=== PATIENT | male | born 1980 | race Caucasian/White ===

== ENCOUNTER 2020-01-18 14:16 | Inpatient (IN) ==
[2020-01-18] MEDS ORDERED: VECURONIUM BROMIDE 10 MG VIAL IV ONE (14:17)
[2020-01-18] MEDS ORDERED: MIDAZOLAM HCL 5 MG/ML VIAL IV ONE (14:17)
[2020-01-18] MEDS ORDERED: SODIUM CHLORIDE 0.9% 10ML FLUSH IV ONE (14:17)
[2020-01-18] MEDS ORDERED: SODIUM CHLORIDE 0.9% INJ 10 ML VIAL IV ONE (14:17)
[2020-01-18] MEDS ORDERED: KETAMINE HCL INJ 50 MG/ML 10 ML VIAL IV ONE (14:17)
[2020-01-18] MEDS ORDERED: SUCCINYLCHOLINE CHLORIDE 20 MG/ML 10 ML VIAL IV ONE (14:17)
[2020-01-18] MEDS ORDERED: HALOPERIDOL LACTATE 5 MG/ML 1 ML VIAL ONE (14:21)
[2020-01-18] MEDS ORDERED: RAPID SEQUENCE INDUCTION BAG ONE (14:27)
--- NOTE | 2020-01-18 14:50 | Emergency Department Note ---
ED Provider Note NAME: PATRIC [id number] VRECSICS AGE: 39 SEX: M : 1980 ARRIVES VIA: Ambulance INFORMANT: [security, nurses, guards] ED PROVIDER(S): [Alexsander Gordon MD] CHIEF COMPLAINT: Altered mental status HISTORY OF PRESENT ILLNESS: The patient is a 39-year-old male who presents from [facility]. The patient was found just prior to arrival by his cellmate unresponsive and confused and combative. The patient was taken to the [facility] and then sent by ambulance to our hospital. In route, the patient was given a total of 4 mg of IV Ativan, 2 mg of IV Versed. The patient arrives combative and [id number]. He is in shackles. BSG was 155 as per the EMS team. No further history is really obtainable. The patient is not able to give any history, the guards and nurses cannot add any further history. History limited given the mental state. REVIEW OF SYSTEMS: Unobtainable/limited given the mental state. PMHx/PSHx: See Below SOCIAL HISTORY: See Below. PHYSICAL EXAM: GENERAL: Patient is significant distress, agitated, combative. HEENT: Patient's pupils are quite large but equal. There are some scratches across the face around the mouth. He has an abrasion to the inner mid to left lower lip, no laceration requiring repair, no dental trauma appreciated. No other facial bony step-off seen, no scalp hematomas. NECK: No stridor, no adenopathy, trachea is midline. LUNGS: Clear to auscultation bilaterally, no wheeze, no rhonchi, breath sounds equal. HEART: Mildly tachycardic, regular rhythm, no murmurs. ABDOMEN: Soft, nontender, bowel sounds positive, no hernias, no peritonitis. EXTREMITIES: No cyanosis or edema, full range of motion of all the joints. The patient is in hand and leg cuffs. There are some abrasions along the skin where the metal cuffs are located. No gross deformity to any extremity. NEUROLOGIC: Combative, moving all extremities, agitated, nonverbal. SKIN: No rash, no jaundice, no diaphoresis. DIFFERENTIAL DIAGNOSIS: Overdose, toxicologic, infection, hypoglycemia, electrolyte abnormalities, cardiac sources, intracerebral event, neurologic, trauma, as well as other pathologies. EMERGENCY DEPARTMENT COURSE/PROCEDURES: ECG: There is a normal sinus rhythm with a rate of 75, artifact is present. QTC is 431, no PVCs, no ST elevation or depression. Continuous Cardiac Monitoring: An order was placed for continuous cardiac monitoring. The monitor shows a rate of 98 with normal sinus rhythm. Intubation performed by me: Patient received 120 mg of succinylcholine IV. The patient was hyper oxygenated. Using rapid technique, the patient was intubated with a [place] two blade. Some suction was required. No complication. The endotracheal tube was placed at 22 centimeters at the the lips. Good O2 saturation noted afterwards. Good CO2 color change. The patient had decreased breath sounds on the left when I performed auscultation. The tube was pulled back slightly. A chest film showed the tube to be slightly deep so it was pulled back 1 cm, a repeat film showed the endotracheal tube to be in good position. IV vecuronium was given to help maintain paralysis. A propofol drip was initiated. No complication with the intubation. Critical Care Note: I have personally spent greater than 65 minutes of critical care time in the direct management of this patient. This includes bedside care, interpretation of diagnostic studies and testing, discussion with consultants, the patient, and family members, and other required patient management activities. This 65 minutes is in excess of all separately billable procedures. MEDICAL DECISION MAKING: The patient presented combative and was in need of chemical and physical restraint. He was aggressively managed. He was initially given IV Versed, IV Haldol, then IV ketamine, he received a second dose of IV ketamine. Ketamine did seem to provide adequate sedation. The patient did have a left-sided nasal airway placed to help with oxygenation. It was not too long after the second dose of IV ketamine that there was some vomiting. He was aggressively suctioned and then intubated, please see above notes. There was no difficulty with the intubation. There is a moderate leukocytosis at 17,000, this could be consistent with infection or just the stress of his presentation. There is no anemia. Platelet count somewhat low at 122. Sodium was quite low at 117, chloride also low. No kidney failure. Serum osmolality was also low at 253. No liver enzyme elevation. The patient appeared to be in a euthyroid state. EKG showed a sinus rhythm, no acute ischemia. Cardiac enzyme testing x1 is not consistent with acute cardiac injury. Urine tox was negative. Alcohol level was undetectable. Gastroccult was negative. Chest film did not show pneumonia or CHF. Brain CT showed no acute bleed or mass-effect. Facial CT showed no acute fracture. Once the patient was intubated, a repeat chest film showed the tube to be in proper position, the lungs were clear. Patient was given 2 L of IV saline during his ED stay. He also was eventually placed on a propofol drip. He received a dose of IV vecuronium to maintain paralysis. A repeat serum sodium showed a value of 119, slight improvement. The patient did have an NG tube placed and Davis placed. The NG tube had significant dark liquid output. The patient had significant dilute urine output. I spoke to the bit gatherer semi conductor assembler, I spoke to the on-call hospitalist. I did speak to case management. Patient is in need of a hospital stay, the cause for this entire presentation is unclear however, overdose or even psychogenic polydipsia are considerations. Of note, there was no [facility], by the EMS crew or noted by the nursing staff here. His combative behavior was noted but there was no true seizure-like event documented. Impression & Plan Respiratory failure, Altered mental status, Combative behavior, Acute hyponatremia, Vomiting Past Med/Surg History Medical History BPH (benign prostatic hyperplasia) Dyslipidemia HTN (hypertension) Family History Other Family history unobtainable Social History Communication Ability: Unable Communication Ability Comment: pt intubated Current Living Situation: Other Current Living Situation Comment: [facility] Smoking Status: Unknown if ever smoked Hx Alcohol Use: No Results & Data Vital Signs Vital Signs - 24 hr 01/18/20 14:30 01/18/20 14:35 01/18/20 14:47 Pulse Rate 71 74 72 Pulse Rate from SpO2 Sensor 77 71 Respiratory Rate 19 16 21 Blood Pressure 115/93 119/68 Blood Pressure Mean 111 93 Pulse Oximetry 95 96 95 Oxygen Delivery Method Room Air Oxymask Oxygen Flow Rate 6 Fraction of Inspired Oxygen Sepsis Recent Fever Within 48 Hours No Sepsis New/Unexplained Change in Mental Status Yes Sepsis Action Taken by Nursing No Action Required End-Tidal CO2 Fraction of Inspired Oxygen - Titration Pulse Oximetry Post Tiitration 01/18/20 14:51 01/18/20 15:01 01/18/20 15:15 Pulse Rate 79 62 Pulse Rate from SpO2 Sensor 81 61 Respiratory Rate 18 11 L Blood Pressure 110/59 L 115/74 Blood Pressure Mean 82 88 Pulse Oximetry 97 97 100 Oxygen Delivery Method Oxymask Mechanical Vent Oxygen Flow Rate Fraction of Inspired Oxygen Sepsis Recent Fever Within 48 Hours Sepsis New/Unexplained Change in Mental Status Sepsis Action Taken by Nursing End-Tidal CO2 Fraction of Inspired Oxygen - Titration Pulse Oximetry Post Tiitration 01/18/20 15:37 01/18/20 15:42 01/18/20 15:44 Pulse Rate 59 L 71 Pulse Rate from SpO2 Sensor 61 73 Respiratory Rate 14 Blood Pressure 181/111 H 182/120 H Blood Pressure Mean 126 130 Pulse Oximetry 100 100 87 L Oxygen Delivery Method Oxygen Flow Rate Fraction of Inspired Oxygen 50 Sepsis Recent Fever Within 48 Hours Sepsis New/Unexplained Change in Mental Status Sepsis Action Taken by Nursing End-Tidal CO2 37 39 Fraction of Inspired Oxygen - Titration 50 Pulse Oximetry Post Tiitration 100 01/18/20 15:45 Pulse Rate 74 Pulse Rate from SpO2 Sensor 82 Respiratory Rate Blood Pressure 180/120 H Blood Pressure Mean 140 Pulse Oximetry 96 Oxygen Delivery Method Oxygen Flow Rate Fraction of Inspired Oxygen Sepsis Recent Fever Within 48 Hours Sepsis New/Unexplained Change in Mental Status Sepsis Action Taken by Nursing End-Tidal CO2 39 Fraction of Inspired Oxygen - Titration Pulse Oximetry Post Tiitration Home Medications Current Medication List: was personally reviewed by me Laboratory Data Attestation: I reviewed the patient's lab results. Result diagrams: 01/18/20 15:49 01/18/20 15:49 Lab Results 01/18/20 01/18/20 01/18/20 Range/Units 14:41 14:41 14:41 WBC Cancelled RBC Cancelled Hgb Cancelled Hct Cancelled MCV Cancelled MCH Cancelled MCHC Cancelled RDW Std Deviation Cancelled RDW Coeff of Jovanni Cancelled Plt Count Cancelled MPV Cancelled Immature Gran % (Auto) Cancelled Neut % (Auto) Cancelled Lymph % (Auto) Cancelled Brantley % (Auto) Cancelled Eos % (Auto) Cancelled Baso % (Auto) Cancelled Immature Gran # (Auto) Cancelled Neut # (Auto) Cancelled Lymph # (Auto) Cancelled Brantley # (Auto) Cancelled Eos # (Auto) Cancelled Baso # (Auto) Cancelled Absolute Nucleated RBC Cancelled Nucleated RBC % (auto) Cancelled Neutrophils % (Manual) Cancelled Band Neutrophils % Cancelled Lymphocytes % (Manual) Cancelled Prolymphocyte % Cancelled Reactive Lymphs % (Man) Cancelled Monocytes % (Manual) Cancelled Eosinophils % (Manual) Cancelled Basophils % (Manual) Cancelled Metamyelocytes % (Man) Cancelled Myelocytes % (Man) Cancelled Promyelocytes % (Man) Cancelled Blast Cells % (Manual) Cancelled Plasma Cell % (Manual) Cancelled Other Cells % Cancelled Nucleated RBC % Cancelled Neutrophils # (Manual) Cancelled Band Neutrophils # Cancelled Total Absolute Neuts Cancelled Lymphocytes # (Manual) Cancelled Prolymphocyte # Cancelled Reactive Lymphs # Cancelled Total Abs Lymphocytes Cancelled Monocytes # (Manual) Cancelled Eosinophils # (Manual) Cancelled Basophils # (Manual) Cancelled Metamyelocytes # (Man) Cancelled Myelocytes # (Manual) Cancelled Promyelocytes # (Man) Cancelled Blast Cells # (Man) Cancelled Plasma Cell # (Manual) Cancelled Other Cells # Cancelled Nucleated RBCs # (Man) Cancelled Hypersegmented Neuts Cancelled Hyposegmented Neuts Cancelled Hypogranular Neuts Cancelled Large Granular Lymphs Cancelled # Lrg Granular Lymphs Cancelled Hairy Cells Cancelled Smudge Cells Cancelled Toxic Granulation Cancelled Toxic Vacuolation Cancelled Dohle Bodies Cancelled Kody Rods Cancelled Platelet Estimate Cancelled Hypogranular Platelets Cancelled Clumped Platelets Cancelled Giant Platelets Cancelled Platelet Satelliting Cancelled RBC Morphology Cancelled Polychromasia Cancelled Hypochromasia Cancelled Poikilocytosis Cancelled Basophilic Stippling Cancelled Anisocytosis Cancelled Microcytosis Cancelled Macrocytosis Cancelled Spherocytes Cancelled Pappenheimer Bodies Cancelled Sickle Cells Cancelled Target Cells Cancelled Tear Drop Cells Cancelled Ovalocytes Cancelled Stomatocytes Cancelled [place] Bodies Cancelled Echinocytes Cancelled Acanthocytes (Spur) Cancelled Rouleaux Cancelled RBC Agglutinates Cancelled Schistocytes Cancelled RBC Morph Comment Cancelled Sezary Cell Cancelled Sodium 117 L* (136-145) mmol/L Potassium (3.5-5.1) mmol/L Chloride 80 L (98-107) mmol/L Carbon Dioxide 22 (21-32) mmol/L Anion Gap 15.0 H (3-11) BUN 10 (7-18) mg/dl Creatinine 1.01 (0.6-1.4) mg/dl Est Cr Clr Drug Dosing Not Reportable Est GFR ( Amer) 109.6 Est GFR (Non-Af Amer) 94.6 BUN/Creatinine Ratio 9.4 L (10-20) Glucose 117 H (70-99) mg/dl POC Glucose (70-99) mg/dl Calcium 8.1 L (8.5-10.1) mg/dl Magnesium TNP Total Bilirubin 0.9 (0.2-1) mg/dl AST (15-37) U/L ALT 32 (12-78) U/L Alkaline Phosphatase 57 (45-117) U/L Total Creatine Kinase TNP Troponin I < 0.015 (0-0.045) ng/ml Total Protein 7.7 (6.4-8.2) gm/dl Albumin 3.9 (3.4-5.0) gm/dl Globulin 3.8 (2.5-4.0) gm/dl Albumin/Globulin Ratio 1.0 (0.9-2) TSH 3.350 (0.300-4.500) uIu/ml Gastric Fluid pH Gastric Occult Blood (Negative) Urine Opiates Screen (Neg) Ur Methadone, Qual (Neg) Urine Barbiturates (Neg) Ur Phencyclidine (PCP) (Neg) U Amphetamin/Meth Scrn (Neg) MDMA (Ecstasy) Screen (Neg) U Benzodiazepines Scrn (Neg) Ur Cocaine Metabolite (Neg) U Marijuana (THC) Screen (Neg) Ethyl Alcohol mg/dL < 3.0 (0-3) mg/dl 01/18/20 01/18/20 01/18/20 Range/Units 14:41 14:45 14:45 WBC RBC Hgb Hct MCV MCH MCHC RDW Std Deviation RDW Coeff of Jovanni Plt Count MPV Immature Gran % (Auto) Neut % (Auto) Lymph % (Auto) Brantley % (Auto) Eos % (Auto) Baso % (Auto) Immature Gran # (Auto) Neut # (Auto) Lymph # (Auto) Brantley # (Auto) Eos # (Auto) Baso # (Auto) Absolute Nucleated RBC Nucleated RBC % (auto) Neutrophils % (Manual) Band Neutrophils % Lymphocytes % (Manual) Prolymphocyte % Reactive Lymphs % (Man) Monocytes % (Manual) Eosinophils % (Manual) Basophils % (Manual) Metamyelocytes % (Man) Myelocytes % (Man) Promyelocytes % (Man) Blast Cells % (Manual) Plasma Cell % (Manual) Other Cells % Nucleated RBC % Neutrophils # (Manual) Band Neutrophils # Total Absolute Neuts Lymphocytes # (Manual) Prolymphocyte # Reactive Lymphs # Total Abs Lymphocytes Monocytes # (Manual) Eosinophils # (Manual) Basophils # (Manual) Metamyelocytes # (Man) Myelocytes # (Manual) Promyelocytes # (Man) Blast Cells # (Man) Plasma Cell # (Manual) Other Cells # Nucleated RBCs # (Man) Hypersegmented Neuts Hyposegmented Neuts Hypogranular Neuts Large Granular Lymphs # Lrg Granular Lymphs Hairy Cells Smudge Cells Toxic Granulation Toxic Vacuolation Dohle Bodies Kody Rods Platelet Estimate Hypogranular Platelets Clumped Platelets Giant Platelets Platelet Satelliting RBC Morphology Polychromasia Hypochromasia Poikilocytosis Basophilic Stippling Anisocytosis Microcytosis Macrocytosis Spherocytes Pappenheimer Bodies Sickle Cells Target Cells Tear Drop Cells Ovalocytes Stomatocytes [place] Bodies Echinocytes Acanthocytes (Spur) Rouleaux RBC Agglutinates Schistocytes RBC Morph Comment Sezary Cell Sodium (136-145) mmol/L Potassium (3.5-5.1) mmol/L Chloride (98-107) mmol/L Carbon Dioxide (21-32) mmol/L Anion Gap (3-11) BUN (7-18) mg/dl Creatinine (0.6-1.4) mg/dl Est Cr Clr Drug Dosing Est GFR ( Amer) Est GFR (Non-Af Amer) BUN/Creatinine Ratio (10-20) Glucose (70-99) mg/dl POC Glucose 127 H (70-99) mg/dl Calcium (8.5-10.1) mg/dl Magnesium Total Bilirubin (0.2-1) mg/dl AST (15-37) U/L ALT (12-78) U/L Alkaline Phosphatase (45-117) U/L Total Creatine Kinase Troponin I (0-0.045) ng/ml Total Protein (6.4-8.2) gm/dl Albumin (3.4-5.0) gm/dl Globulin (2.5-4.0) gm/dl Albumin/Globulin Ratio (0.9-2) TSH (0.300-4.500) uIu/ml Gastric Fluid pH 5-7 Gastric Occult Blood Negative (Negative) Urine Opiates Screen Neg (Neg) Ur Methadone, Qual Neg (Neg) Urine Barbiturates Neg (Neg) Ur Phencyclidine (PCP) Neg (Neg) U Amphetamin/Meth Scrn Neg (Neg) MDMA (Ecstasy) Screen Neg (Neg) U Benzodiazepines Scrn Neg (Neg) Ur Cocaine Metabolite Neg (Neg) U Marijuana (THC) Screen Neg (Neg) Ethyl Alcohol mg/dL (0-3) mg/dl Administered Medications Propofol (Diprivan) 1,000 mg in 100 mls @ 9.324 mls/hr IV .[id number] [facility]; Protocol Stop: 01/21/20 15:14 Last Titration: 01/18/20 16:35 Dose: 25 mcg/kg/min, 11.7 mls/hr Documented by: [id number] Titration: 01/18/20 16:19 Dose: 20 mcg/kg/min, 9.3 mls/hr Documented by: [id number] Titration: 01/18/20 16:15 Dose: 15 mcg/kg/min, 7 mls/hr Documented by: [id number] Titration: 01/18/20 15:48 Dose: 10 mcg/kg/min, 4.7 mls/hr Documented by: [id number] Admin: 01/18/20 15:20 Dose: 5 mcg/kg/min, 2.3 mls/hr Documented by: [id number] Cosigned by: [id number] Discontinued Medications Vecuronium Eugene 10 mg/ (Syringe) 10 mls @ 0 mls/min IV NOW STA Stop: 01/18/20 15:24 Last Admin: 01/18/20 15:16 Dose: 10 mls/min Documented by: [id number] Sodium Chloride (Nss 1000ml) 1,000 mls @ 999 mls/hr IV .[id number] ONE Stop: 01/18/20 16:35 Last Admin: 01/18/20 15:51 Dose: 999 mls/hr Documented by: [id number] Propofol (Diprivan) Confirm Administered Dose 1,000 mg IV .CardMunch ONE Stop: 01/18/20 15:11 Last Admin: 01/18/20 15:56 Dose: Not Given Documented by: [id number] Imaging Data Radiologist's Impression: HEAD CT NONCONTRAST CT DOSE: HISTORY: Trauma. confusion TECHNIQUE: Multiaxial CT images of the head were performed without the use of intravenous contrast. Automated exposure control was utilized for this study. A dose lowering technique was utilized adhering to the principles of ALARA. Comparison: None. Findings: Bubbly secretions seen within the posterior nasal cavity. This is only partially visualized on this study. The mastoid air cells are clear. The calvarium and skull base are intact. The ventricles and sulci are within normal limits. There is no mass, hematoma, midline shift, or acute infarct. Impression: No acute intracranial abnormality. Bubbly secretions within the posterior nasal cavity. CT facial bones wo con CT DOSE: 768.66 mGy.cm CLINICAL HISTORY: Facial pain status post trauma COMPARISON STUDY: No previous studies for comparison. TECHNIQUE: Helical images were acquired in the transverse plane. The study was reviewed and analyzed on the independent 3-D workstation. A dose lowering technique was utilized adhering to the principles of ALARA. A nasogastric tube and endotracheal tube are visualized. The pterygoid plates appear intact. The zygomatic arches appear intact. The globes appear intact. There is no evidence of orbital emphysema. The orbital sands and floor appear intact. There is pansinus mucosal thickening. The mandibular condyles appear intact. The right mandibular condyle is in the open position, and the left mandibular condyle is in the closed position. This may be secondary to mandibular orientation. This will need to be correlated clinically. IMPRESSION: No facial fractures identified. XR chest 1V portable CLINICAL HISTORY: confusion mental status change COMPARISON STUDY: No previous studies for comparison. FINDINGS: The bones soft tissues and hemidiaphragms are normal. The cardiomediastinal silhouette is normal. The lungs are clear. The pulmonary va sculature is normal. IMPRESSION: Negative chest. XR chest 1V portable CLINICAL HISTORY: Tube placement. COMPARISON STUDY: 01/18/2020 FINDINGS: There is a nasogastric tube which passes into the stomach. There is an endotracheal tube positioned 19 mm above the manish. The lungs are clear. There are no pleural effusions.[ IMPRESSION: 1. Endotracheal tube 19 mm above the manish 2. Nasogastric tube within the stomach Blood Pressure Blood Pressure Findings: Elevated blood pressure Blood Pressure Disposition: further management by hospitalist Discharge Plan Visit Data Chief Complaint: Overdose (Intentional) ED Provider: Alexsander Gordon Discharge Problem: Respiratory failure, Altered mental status, Combative behavior, Acute hyponatremia, Vomiting Patient Disposition: Being Evaluated by Hospitalist Condition: Serious Discharge Instructions Interventions: ED Discharge Assessment Last Done: 01/18/20 16:35 Discharge Problem: Respiratory failure Qualifiers: Chronicity: acute Respiratory failure complication: unspecified whether with hypoxia or hypercapnia Qualified Code(s): J96.00 - Acute respiratory failure, unspecified whether with hypoxia or hypercapnia Altered mental status Qualifiers: Altered mental status type: unspecified Qualified Code(s): R41.82 - Altered mental status, unspecified Vomiting Qualifiers: Vomiting type: unspecified Vomiting Intractability: non-intractable Nausea presence: unspecified Qualified Code(s): R11.10 - Vomiting, unspecified
--- NOTE | 2020-01-18 15:01 | XRay Report ---
XR chest 1V portable CLINICAL HISTORY: confusion mental status change COMPARISON STUDY: No previous studies for comparison. FINDINGS: The bones soft tissues and hemidiaphragms are normal. The cardiomediastinal silhouette is n ormal. The lungs are clear. The pulmonary vasculature is normal. IMPRESSION: Negative chest. ACT 112: Negative or not required by law. The above report was generated using voice recognition software. It may contain grammatical, syntax or spelling errors. Electronically signed by: Luis Cordova M.D. 01/18/2020 3:00 PM
[2020-01-18] MEDS ORDERED: PROPOFOL IV EMULSION 10 MG/ML 100 ML VIAL IV ONE (15:10)
[2020-01-18] MEDS ORDERED: STAT IV Infusion **Titration per Protocol STA (15:15)
[2020-01-18] MEDS: propofoL 1,000 MG/100 ML VIAL IV SCH ×2 (15:20→19:32)
[2020-01-18] MEDS ORDERED: MIDAZOLAM HCL 5 MG/ML 1 ML VIAL IV STA (15:21)
[2020-01-18] MEDS ORDERED: KETAMINE HCL INJ 50 MG/ML 10 ML VIAL IV STA ×2 (15:21→15:22)
[2020-01-18] MEDS ORDERED: SUCCINYLCHOLINE CHLORIDE 20 MG/ML 10 ML VIAL IV STA (15:21)
[2020-01-18] MEDS ORDERED: VECURONIUM BROMIDE 10 MG in SYRINGE 0 ML IV STA (15:23)
--- NOTE | 2020-01-18 15:28 | XRay Report ---
XR chest 1V portable CLINICAL HISTORY: Tube placement. COMPARISON STUDY: 01/18/2020 FINDINGS: There is a nasogastric tube which passes into the stomach. There is an endotracheal tube po sitioned 19 mm above the manish. The lungs are clear. There are no pleural effusions.[ IMPRESSION: 1. Endotracheal tube 19 mm above the manish 2. Nasogastric tube within the stomach ACT 112: Negative or not required by law. Electronically signed by: Ilya Zhu M.D. 01/18/2020 3:27 PM
[2020-01-18] MEDS ORDERED: SODIUM CHLORIDE 0.9% 1000ML 1,000 ML IV ONE (15:35)
--- NOTE | 2020-01-18 15:40 | CT Scan Report ---
HEAD CT NONCONTRAST CT DOSE: HISTORY: Trauma. confusion TECHNIQUE: Multiaxial CT images of the head were performed without the use of intravenous contrast. A utomated exposure control was utilized for this study. A dose lowering technique was utilized adheri ng to the principles of ALARA. Comparison: None. Findings: Bubbly secretions seen within the posterior nasal cavity. This is only partially visualized on this study. The mastoid air cells are clear. The calvarium and skull base are intact. The ventric les and sulci are within normal limits. There is no mass, hematoma, midline shift, or acute infarct. Impression: No acute intracranial abnormality. Bubbly secretions within the posterior nasal cavity. ACT 112: Negative or not required by law. Electronically signed by: Adalid Don M.D. 01/18/2020 3:39 PM
--- NOTE | 2020-01-18 15:40 | CT Scan Report ---
CT facial bones wo con CT DOSE: 768.66 mGy.cm CLINICAL HISTORY: Facial pain status post trauma COMPARISON STUDY: No previous studies for comparison. TECHNIQUE: Helical images were acquired in the transverse plane. The study was reviewed and analyzed on the independent 3-D workstation. A dose lowering technique was utilized adhering to the principle s of ALARA. A nasogastric tube and endotracheal tube are visualized. The pterygoid plates appear intact. The zygomatic arches appear intact. The globes appear intact. There is no evidence of orbital emphysema. The orbital sands and floor appear intact. There is pansinus mucosal thickening. The mandibular condyles appear intact. The right mandibular condyle is in the open position, and the left mandibular condyle is in the closed position. This may be secondary to mandibular orientation. T his will need to be correlated clinically. IMPRESSION: No facial fractures identified. ACT 112: Negative or not required by law. Electronically signed by: Ilya hZu M.D. 01/18/2020 3:38 PM
[2020-01-18 15:43] LABS: Alanine Aminotransferase 32 U/L (12-78); Albumin Level 3.9 gm/dl (3.4-5.0); Alkaline Phosphatase 57 U/L (45-117); BUN Creatinine Ratio 9.4 (10-20); Bilirubin,Total 0.9 mg/dl (0.2-1); Blood Urea Nitrogen 10 mg/dl (7-18); Calcium 8.1 mg/dl (8.5-10.1); Carbon Dioxide 22 mmol/L (21-32); Chloride 80 mmol/L (98-107); Est GFR (African American) 109.6; Est GFR (Non-African American) 94.6; Globulin 3.8 gm/dl (2.5-4.0); Glucose 117 mg/dl (70-99); Sodium 117 mmol/L (136-145); Total Protein 7.7 gm/dl (6.4-8.2); Troponin I < 0.015 ng/ml (0-0.045)
[2020-01-18 15:56] LABS: Gastric Occult Blood Negative (Negative)
[2020-01-18 15:57] LABS: Basophils # (auto) 0.01 K/uL (0-0.2); Basophils % (auto) 0.1 %; Eosinophils # (auto) 0.03 K/uL (0-0.5); Eosinophils % (auto) 0.2 %; Hematocrit (blood only) 41.9 % (42-52); Hemoglobin 15.4 g/dL (14.0-18.0); Immature Granulocytes # (auto) 0.05 K/uL (0.00-0.02); Immature Granulocytes % (auto) 0.3 %; Lymphocytes # (auto) 0.79 K/uL (1.2-3.4); Lymphocytes % (auto) 4.6 %; Mean Corpuscular Hemoglobin 32.6 pg (25-34); Mean Corpuscular Hgb Conc 36.8 g/dL (32-36); Mean Corpuscular Volume 88.8 fL (80-100); Mean Platelet Volume 10.2 fL (7.4-10.4); Monocytes # (auto) 1.65 K/uL (0.11-0.59); Monocytes % (auto) 9.7 %; Neutrophils # (auto) 14.53 K/uL (1.4-6.5); Neutrophils % (auto) 85.1 %; Platelet Count 122 K/uL (130-400); RDW Coefficient of Variation 11.6 % (11.5-14.5); RDW Standard Deviation 37.7 fL (36.4-46.3); Red Blood Count 4.72 M/uL (4.7-6.1); White Blood Count 17.06 K/uL (4.8-10.8)
[2020-01-18 16:13] LABS: Amphetamines+Metham, Urine Neg (Neg); Barbiturates, Urine Neg (Neg); Benzodiazepine, Urine Neg (Neg); Cocaine, Urine Neg (Neg); MDMA (Ecstacy), Urine Neg (Neg); Methadone, Urine Neg (Neg); Opiate, Urine Neg (Neg); Phencyclidine, Urine Neg (Neg)
[2020-01-18] MEDS ORDERED: DESMOPRESSIN ACETATE 2 MCG in SODIUM CHLORIDE 0.9% 50 ML IV SCH ×2 (16:15→22:15)
--- NOTE | 2020-01-18 16:18 | Electrocardiogram Report ---
Test Reason : Blood Pressure : / mmHG Vent. Rate : 075 BPM Atrial Rate : 075 BPM P-R Int : 146 ms QRS Dur : 100 ms QT Int : 386 ms P-R-T Axes : 061 083 050 degrees QTc Int : 431 ms Poor data quality, interpretation may be adversely affected Normal sinus rhythm Nonspecific ST abnormality Abnormal ECG No previous ECGs available Confirmed by Adam Romo ([id number]) on 01/18/2020 4:18:19 PM Referred By: Melanie OBWEN Confirmed By:Adam Romo
[2020-01-18 16:20] LABS: BUN Creatinine Ratio 14.6 (10-20); Blood Urea Nitrogen 10 mg/dl (7-18); Calcium 7.3 mg/dl (8.5-10.1); Carbon Dioxide 24 mmol/L (21-32); Chloride 84 mmol/L (98-107); Est GFR (African American) 142.3; Est GFR (Non-African American) 122.8; Glucose 112 mg/dl (70-99); Sodium 119 mmol/L (136-145)
--- NOTE | 2020-01-18 16:35 | History & Physical Report ---
Date of Service January 18, 2020 Assessment & Plan (1) Acute hyponatremia: (2) Altered mental status: (3) Combative behavior: -Admit to ICU -Patient presenting from [facility] after he was found to have altered mental status and combative behavior -In the ED, patient received Versed and 2 doses of ketamine and continued to be combative and also had an episode of vomiting. He was then intubated for airway protection. -Labs show critical hyponatremia with sodium 117, serum osmolality 253, urine osmolality and electrolytes pending at this time -Per medical management trainer at [facility], patient had labs on 09/24/2019 showing Na+ 128 -? Some component of psychogenic polydipsia; noted the patient is also on HCTZ and keeps his medications in his cell, medical management trainer reports he will perform a pill count and report back to me -NG tube was placed which drained a large amount of dark fluid, this was heme- negative -UDS negative; concern for synthetic marijuana ingestion -WBC 17 K, no obvious source of infection at this time; likely stress response -Davis was placed which is draining a high amount of dilute urine -Received 1 L NSS in ED, and 1 dose of DDAVP as per physician's aide -Case was discussed with Dr. Veloz (4) HTN (hypertension): -BP intermittently elevated, likely situational -Typically managed with HCTZ (5) Dyslipidemia: -Resume statin once taking p.o. (6) BPH (benign prostatic hyperplasia): -Resume tamsulosin once taking p.o. (7) DVT prophylaxis: -SQ Lovenox History of Present Illness Chief Complaint: Altered Mental Status Primary Care Provider: [facility] Melanie 39 year old male who presents to the ED from [facility] for evaluation of altered mental status. Patient was found by his cellmate this afternoon confused and combative. Patient was brought to the ED for further evaluation. History is currently unobtainable from the patient. Per guard who is at the bedside, patient is in his cell 23 hours/day due to history of drug use while in intermediate. Patient is on HCTZ and Flomax and does have these medications available to take in his cell. No reported seizure like activity. In the ED, patient continued to be combative and received Versed and 2 doses of Ketamine. He then developed vomiting and once again became combative. He was then intubated for airway protection. Labs show critical hyponatremia, Na+ 117. Patient received 1L NSS and also a dose of DDAVP after discussion with physician's aide. Allergies Allergy/AdvReac Type Severity Reaction Status Date / Time No Known Allergies Allergy Unverified 01/18/20 15:01 Home Medications Home Medications Medication Instructions Recorded Confirmed Type atorvastatin 10 mg PO DAILY 01/18/20 01/18/20 History cetirizine 10 mg PO DAILY 01/18/20 01/18/20 History dicyclomine 20 mg PO QID PRN 01/18/20 01/18/20 History hydrochlorothiazide 12.5 mg PO DAILY 01/18/20 01/18/20 History simethicone 125 mg PO QID PRN 01/18/20 01/18/20 History tamsulosin 0.8 mg PO DAILY 01/18/20 01/18/20 History Past Med/Surg History Medical History BPH (benign prostatic hyperplasia) Dyslipidemia HTN (hypertension) Family History Other Family history unobtainable Social History Communication Ability: Unable Communication Ability Comment: pt intubated Current Living Situation: Other Current Living Situation Comment: [facility] Smoking Status: Unknown if ever smoked Hx Alcohol Use: No Review of Systems Review of Systems: Unobtainable due to endotracheal tube Physical Exam Constitutional: WD/WN, vitals as above intubated, sedated Eyes: + anicteric sclerae and + pinpoint pupils (likely secondary to medications); no conjunctival abnormality ENMT: Ears: no external ear abnormality Nose: no external nose abnormality ET tube in place Respiratory: normal respiratory effort, lungs clear to auscultation intubated Cardiovascular: Rate/Rhythm: regular rate and regular rhythm Vessels: normal peripheral pulses Extremities: no edema Gastrointestinal (Abdomen): normal bowel sounds, soft, nontender, no hepatosplenomegaly NG tube in place draining dark material Musculoskeletal: Extremities: no cyanosis and no clubbing unable to preform strength testing due to sedation Skin: no rashes, warm and dry Neurologic: Sedated Psychiatric: Sedated Results & Data Vital Signs (Past 12 Hours) Vital Signs Pulse Resp BP Pulse Ox 01/18/20 16:15 70 166/108 H 100 01/18/20 16:01 72 168/112 H 100 01/18/20 15:50 55 L 135/92 100 01/18/20 15:45 74 180/120 H 96 01/18/20 15:44 87 L 01/18/20 15:42 71 182/120 H 100 01/18/20 15:37 59 L 14 181/111 H 100 01/18/20 15:15 62 11 L 115/74 100 01/18/20 15:01 79 18 110/59 L 97 01/18/20 14:51 97 01/18/20 14:47 72 21 119/68 95 01/18/20 14:35 74 16 115/93 96 01/18/20 14:30 71 19 95 Laboratory Results Short CBC 01/18/20 01/18/20 Range/Units 14:41 15:49 WBC Cancelled 17.06 H Hgb Cancelled 15.4 Hct Cancelled 41.9 L Plt Count Cancelled 122 L BMP 01/18/20 01/18/20 14:41 15:49 Sodium 117 L* 119 L* Potassium Chloride 80 L 84 L Carbon Dioxide 22 24 BUN 10 10 Creatinine 1.01 0.67 D Glucose 117 H 112 H Calcium 8.1 L 7.3 L Cardiac Enzymes 01/18/20 Range/Units 14:41 Total Creatine Kinase TNP Troponin I < 0.015 (0-0.045) ng/ml Liver Function 01/18/20 01/18/20 Range/Units 14:41 15:49 Total Bilirubin 0.9 (0.2-1) mg/dl AST (15-37) U/L ALT 32 (12-78) U/L Alkaline Phosphatase 57 (45-117) U/L Albumin 3.9 (3.4-5.0) gm/dl Code Status & VTE Plan VTE Prophylaxis Plan VTE Prophylaxis will be ordered: Yes Supervising Physician Co-Signing Physician Notes I have seen and examined the patient and have discussed the case with the provider above. I agree with the assessment and plan as stated. 39 yo prisoner who has possibly overdosed on something or taken a drug such as synthetic marijuana per reports, is now intubated and sedated in the ICU. ROS cannot be obtained and history is through reports of witnesses only, and this is limited. He is reported to be on HCTZ, which may be adding to his severe hyponatremia along with other side effects of whatever substance he took. Physical exam reveals pupils that are equal and bilateral, he is intubated and agitated demonstrating myoclonic jerking. He is restrained as he is a prisoner. DDAVP was initiated early per Research Software Engineer who is trying to stay ahead of the inherent overcorrection of his sodium after IVFs given in the ER. He otherwise has minimal medical problems and agree with ICU plan highlighted above. DO Joel (1) Altered mental status Altered mental status type: unspecified Qualified Code(s): R41.82 - Altered mental status, unspecified
--- NOTE | 2020-01-18 16:43 | XRay Report ---
KUB HISTORY: Status post placement of an enteric tube OD, OG position any hyperdense FB? COMPARISON: Chest radiograph of same day FINDINGS: Enteric tube distal tip projects over the abdominal left upper quadrant within the spectrum location of the mid gastric lumen. Moderate fecal retention. Mild gaseous distention of the colon. N onobstructive bowel gas pattern. No pneumatosis or pneumoperitoneum. Catheter projects over the centr al pelvis. No urolith. No acute fracture. No definite opaque foreign body. IMPRESSION: 1. Distal tips enteric tube projects over the left upper quadrant of the abdomen within the expected location of the mid gastric lumen. 2. Moderate fecal retention. 3. Nonobstructive bowel gas pattern. ACT 112: Negative or not required by law. The above report was generated using voice recognition software. It may contain grammatical, syntax o r spelling errors. Electronically signed by: Uri Tariq M.D. 01/18/2020 4:42 PM
[2020-01-18 17:11] LABS: Urine Potassium 1.9 mmol/L
[2020-01-18] MEDS ORDERED: ICU PROTOCOL FOR HYPERGLYCEMIA PRN (17:35)
[2020-01-18 17:37] LABS: Potassium 2.8 mmol/L (3.5-5.1)
[2020-01-18 17:39] LABS: Magnesium 1.5 mg/dl (1.8-2.4)
--- NOTE | 2020-01-18 17:41 | Critical Care Consultation ---
Date of Consultation January 18, 2020 Assessment & Plan (1) Altered mental status: Nic Ferrell is a 39 y/o M who presents from [facility]. The patient was found just prior to arrival in the ED by his cellmate unresponsive and confused and combative. NEURO: - [facility] ICU: unable to assess due to intubation and sedation - Altered mental status: patient pulling at shackles causing abrasions to upper extremities - sedation with Propofol - Versed 1mg Q2h PRN for continued agitation - ?Psychogenic polydipsia verse synthetic drug use verse medication overdose - conversation with Janet from [facility], cell search did not demonstrate increased use of HCTZ or synthetic drugs, did demonstrate 3 fully empty packs of Bentyl (increased usage, over unknown timeframe) CARDIAC/VASCULAR: - no significant medical history of cardiovascular disease RESPIRATORY: - intubated - CXR without evidence of active disease GI/NUTRITION: - NPO - prophylaxis: Pepcid RENAL/LYTES: - sodium on admission 117, last check at 1917 Na 123 - Mg 1.5; K 2.8 - repleted with 2gm Mg Sulfate, and 40meq of KCl - serum osmolality 253 - previously had Na of 128 on 09/24/2019 - continue BMPs Q4h - DDAVP 2mcg IV Q8h : - Modi in place - patient does take tamsulosin - 6.1L of output since admission; from 1020-5067 had 100mLs of output - continue to monitor strict I/Os ENDO: - no history of hypo/hyperthyroidism, no T2DM HEME: - H&H stable ID: - unlikely to be infectious source LINES/IV ACCESS: - peripheral IVs - endotracheal tube DVT PROPHYLAXIS: - SCDs (2) Combative behavior: (3) Acute hyponatremia: Supervising Physician Co-Signing Physician Notes Dr. Corral was resident physician during care of patient. I separately evaluated patient for breen portions of the history and the exam. I was present during the critical portion of medical decision making, and I discussed the case with the resident. I generally agree with the findings and plan. Presumptive toxic ingestion, acute hyponatremia, patient could be predisposed to hyponatremia given thiazide diuretic use. He does not appear to be dehydrated, he received 2 L of normal saline in the ED and has had large urine output. We have administered DDAVP he has had a significant increase in his sodium however we are optimizing his other electrolytes which should lower the sodium. Continu ed sedation given altered mental status and combativeness. I have personally spent 65 minutes of critical care time in the direct management of this patient. This is a life/limb threatening event. This includes time spent evaluating patient, direct bedside care, chart review, placing orders, interpretation of diagnostic studies, discussion with consultants, patient, and/or family members regarding treatment decisions, as well as other required patient management activities. This time is exclusive of all separately billable procedures, and teaching time and separate from and in addition to any other critical care service time. History of Present Illness Attending Physician: Miguelina Maldonado, History of Present Illness Nic Ferrell is a 39 y/o M who presents from [facility]. The patient was found just prior to arrival in the ED by his cellmate unresponsive and confused and combative. The patient was taken to the [facility] and then sent by ambulance to our hospital. He arrived combative and [id number], and was in [facility]. Per guard at bedside, patient has history of drug use while in usp. No reported seizure like activity. Spoke with Janet, medical operations supervisor of [facility], performed pill count of all of patient medications based off the pill packs that they have found so far, it does not appear that he has increased usage of HCTZ as he as many as expected; however, had three fully empty packs of Bentyl that did not match what he should have used at this point. They did not complete the search of cell yet, and had not seen any synthetic drugs within cell yet. Per cellmate communication with them, patient has not had increased consumption of water, or other usage of synthetic drugs within cell. Patient is kept in cell 23hrs/day Allergies Allergy/AdvReac Type Severity Reaction Status Date / Time No Known Allergies Allergy Unverified 01/18/20 15:01 Home Medications Home Medications Medication Instructions Recorded Confirmed Type atorvastatin 10 mg PO DAILY 01/18/20 01/18/20 History cetirizine 10 mg PO DAILY 01/18/20 01/18/20 History dicyclomine 20 mg PO QID PRN 01/18/20 01/18/20 History hydrochlorothiazide 12.5 mg PO DAILY 01/18/20 01/18/20 History simethicone 125 mg PO QID PRN 01/18/20 01/18/20 History tamsulosin 0.8 mg PO DAILY 01/18/20 01/18/20 History Patient History Medical History BPH (benign prostatic hyperplasia) Dyslipidemia HTN (hypertension) Family History Other Family history unobtainable Social History Communication Ability: Unable Communication Ability Comment: pt intubated Current Living Situation: Other Current Living Situation Comment: [facility] Smoking Status: Unknown if ever smoked Hx Alcohol Use: No Review of Systems Review of Systems: Unobtainable due to endotracheal tube Physical Exam Constitutional: WD/WN intubated and sedated Eyes: PERRL and reactive pupils; no conjunctival abnormality and no scleral abnormality ENMT: external ear and nose normal, oropharynx normal Neck: normal visual inspection Respiratory: no respiratory distress (intubated) and no cough Auscultation: + crackles; no rales, no rhonchi and no wheezes Cardiovascular: Rate/Rhythm: regular rate and regular rhythm Heart Sounds: normal S1 and normal S2; no gallop, no murmur and no cardiac rub Vessels: no JVD Extremities: no pedal edema Gastrointestinal (Abdomen): Inspection/Auscultation: abdomen normal to inspection and normal bowel sounds; abdomen not distended Percussion/P alpation: abdomen soft; no guarding Musculoskeletal: spontaneous movement in all extremities Skin: no rashes, warm and dry Neurologic: spontaneously moves all extremities spontaneously, pulling against shackles and soft restrains Genitourinary: clear dilute urine in modi bag Lymphatic: no cervical or axillary lymphadenopathy Results & Data Vital Signs (Past 12 Hours) Vital Signs Pulse Resp BP Pulse Ox 01/18/20 16:30 70 165/108 H 01/18/20 16:25 71 162/123 H 98 01/18/20 16:15 70 166/108 H 100 01/18/20 16:01 72 168/112 H 100 01/18/20 15:50 55 L 135/92 100 01/18/20 15:45 74 180/120 H 96 03/18/20 15:44 87 L 01/18/20 15:42 71 182/120 H 100 01/18/20 15:37 59 L 14 181/111 H 100 01/18/20 15:15 62 11 L 115/74 100 01/18/20 15:01 79 18 110/59 L 97 01/18/20 14:51 97 01/18/20 14:47 72 21 119/68 95 01/18/20 14:35 74 16 115/93 96 01/18/20 14:30 71 19 95 Laboratory Results 01/18/20 01/18/20 01/18/20 Range/Units Unknown 17:37 17:17 WBC RBC Hgb Hct MCV MCH MCHC RDW Std Deviation RDW Coeff of Jovanni Plt Count MPV Immature Gran % (Auto) Neut % (Auto) Lymph % (Auto) [place] % (Auto) Eos % (Auto) Baso % (Auto) Immature Gran # (Auto) Neut # (Auto) Lymph # (Auto) [place] # (Auto) Eos # (Auto) Baso # (Auto) Absolute Nucleated RBC Nucleated RBC % (auto) Neutrophils % (Manual) Band Neutrophils % Lymphocytes % (Manual) Prolymphocyte % Reactive Lymphs % (Man) Monocytes % (Manual) Eosinophils % (Manual) Basophils % (Manual) Metamyelocytes % (Man) Myelocytes % (Man) Promyelocytes % (Man) Blast Cells % (Manual) Plasma Cell % (Manual) Other Cells % Nucleated RBC % Neutrophils # (Manual) Band Neutrophils # Total Absolute Neuts Lymphocytes # (Manual) Prolymphocyte # Reactive Lymphs # Total Abs Lymphocytes Monocytes # (Manual) Eosinophils # (Manual) Basophils # (Manual) Metamyelocytes # (Man) Myelocytes # (Manual) Promyelocytes # (Man) Blast Cells # (Man) Plasma Cell # (Manual) Other Cells # Nucleated RBCs # (Man) Hypersegmented Neuts Hyposegmented Neuts Hypogranular Neuts Large Granular Lymphs # Lrg Granular Lymphs Hairy Cells Smudge Cells Toxic Granulation Toxic Vacuolation Dohle Bodies Kody Rods Platelet Estimate Hypogranular Platelets Clumped Platelets Giant Platelets Platelet Satelliting RBC Morphology Polychromasia Hypochromasia Poikilocytosis Basophilic Stippling Anisocytosis Microcytosis Macrocytosis Spherocytes Pappenheimer Bodies Sickle Cells Target Cells Tear Drop Cells Ovalocytes Stomatocytes Galo-Brightwood Bodies Echinocytes Acanthocytes (Spur) Rouleaux RBC Agglutinates Schistocytes RBC Morph Comment Sezary Cell Sodium (136-145) mmol/L Potassium 2.8 L (3.5-5.1) mmol/L Chloride (98-107) mmol/L Carbon Dioxide (21-32) mmol/L Anion Gap (3-11) BUN (7-18) mg/dl Creatinine (0.6-1.4) mg/dl Est Cr Clr Drug Dosing Est GFR ( Amer) Est GFR (Non-Af Amer) BUN/Creatinine Ratio (10-20) Glucose (70-99) mg/dl POC Glucose 115 H (70-99) mg/dl Osmolality (280-300) mOsm/kg Calcium (8.5-10.1) mg/dl Magnesium 1.5 L Total Bilirubin (0.2-1) mg/dl AST (15-37) U/L ALT (12-78) U/L Alkaline Phosphatase (45-117) U/L Total Creatine Kinase Troponin I (0-0.045) ng/ml Total Protein (6.4-8.2) gm/dl Albumin (3.4-5.0) gm/dl Globulin (2.5-4.0) gm/dl Albumin/Globulin Ratio (0.9-2) TSH (0.300-4.500) uIu/ml Urine Osmolality (500-800) mOsm/kg Urine Sodium mmol/L Urine Potassium mmol/L Urine Chloride mmol/L Nasal Screen MRSA (PCR) Pending Gastric Fluid pH Gastric Occult Blood (Negative) Urine Opiates Screen (Neg) Ur Methadone, Qual (Neg) Urine Barbiturates (Neg) Ur Phencyclidine (PCP) (Neg) U Amphetamin/Meth Scrn (Neg) MDMA (Ecstasy) Screen (Neg) U Benzodiazepines Scrn (Neg) Ur Cocaine Metabolite (Neg) U Marijuana (THC) Screen (Neg) Ethyl Alcohol mg/dL (0-3) mg/dl 01/18/20 01/18/20 01/18/20 Range/Units 17:17 16:20 16:20 WBC RBC Hgb Hct MCV MCH MCHC RDW Std Deviation RDW Coeff of Jovanni Plt Count MPV Immature Gran % (Auto) Neut % (Auto) Lymph % (Auto) [place] % (Auto) Eos % (Auto) Baso % (Auto) Immature Gran # (Auto) Neut # (Auto) Lymph # (Auto) [place] # (Auto) Eos # (Auto) Baso # (Auto) Absolute Nucleated RBC Nucleated RBC % (auto) Neutrophils % (Manual) Band Neutrophils % Lymphocytes % (Manual) Prolymphocyte % Reactive Lymphs % (Man) Monocytes % (Manual) Eosinophils % (Manual) Basophils % (Manual) Metamyelocytes % (Man) Myelocytes % (Man) Promyelocytes % (Man) Blast Cells % (Manual) Plasma Cell % (Manual) Other Cells % Nucleated RBC % Neutrophils # (Manual) Band Neutrophils # Total Absolute Neuts Lymphocytes # (Manual) Prolymphocyte # Reactive Lymphs # Total Abs Lymphocytes Monocytes # (Manual) Eosinophils # (Manual) Basophils # (Manual) Metamyelocytes # (Man) Myelocytes # (Manual) Promyelocytes # (Man) Blast Cells # (Man) Plasma Cell # (Manual) Other Cells # Nucleated RBCs # (Man) Hypersegmented Neuts Hyposegmented Neuts Hypogranular Neuts Large Granular Lymphs # Lrg Granular Lymphs Hairy Cells Smudge Cells Toxic Granulation Toxic Vacuolation Dohle Bodies Kody Rods Platelet Estimate Hypogranular Platelets Clumped Platelets Giant Platelets Platelet Satelliting RBC Morphology Polychromasia Hypochromasia Poikilocytosis Basophilic Stippling Anisocytosis Microcytosis Macrocytosis Spherocytes Pappenheimer Bodies Sickle Cells Target Cells Tear Drop Cells Ovalocytes Stomatocytes Galo-Brightwood Bodies Echinocytes Acanthocytes (Spur) Rouleaux RBC Agglutinates Schistocytes RBC Morph Comment Sezary Cell Sodium 123 L (136-145) mmol/L Potassium (3.5-5.1) mmol/L Chloride (98-107) mmol/L Carbon Dioxide (21-32) mmol/L Anion Gap (3-11) BUN (7-18) mg/dl Creatinine (0.6-1.4) mg/dl Est Cr Clr Drug Dosing Est GFR ( Amer) Est GFR (Non-Af Amer) BUN/Creatinine Ratio (10-20) Glucose (70-99) mg/dl POC Glucose (70-99) mg/dl Osmolality (280-300) mOsm/kg Calcium (8.5-10.1) mg/dl Magnesium Total Bilirubin (0.2-1) mg/dl AST (15-37) U/L ALT (12-78) U/L Alkaline Phosphatase (45-117) U/L Total Creatine Kinase Troponin I (0-0.045) ng/ml Total Protein (6.4-8.2) gm/dl Albumin (3.4-5.0) gm/dl Globulin (2.5-4.0) gm/dl Albumin/Globulin Ratio (0.9-2) TSH (0.300-4.500) uIu/ml Urine Osmolality 157 L (500-800) mOsm/kg Urine Sodium 70 mmol/L Urine Potassium 1.9 mmol/L Urine Chloride 64 mmol/L Nasal Screen MRSA (PCR) Gastric Fluid pH Gastric Occult Blood (Negative) Urine Opiates Screen (Neg) Ur Methadone, Qual (Neg) Urine Barbiturates (Neg) Ur Phencyclidine (PCP) (Neg) U Amphetamin/Meth Scrn (Neg) MDMA (Ecstasy) Screen (Neg) U Benzodiazepines Scrn (Neg) Ur Cocaine Metabolite (Neg) U Marijuana (THC) Screen (Neg) Ethyl Alcohol mg/dL (0-3) mg/dl 01/18/20 01/18/20 01/18/20 Range/Units 16:18 16:10 15:49 WBC RBC Hgb Hct MCV MCH MCHC RDW Std Deviation RDW Coeff of Jovanni Plt Count MPV Immature Gran % (Auto) Neut % (Auto) Lymph % (Auto) [place] % (Auto) Eos % (Auto) Baso % (Auto) Immature Gran # (Auto) Neut # (Auto) Lymph # (Auto) [place] # (Auto) Eos # (Auto) Baso # (Auto) Absolute Nucleated RBC Nucleated RBC % (auto) Neutrophils % (Manual) Band Neutrophils % Lymphocytes % (Manual) Prolymphocyte % Reactive Lymphs % (Man) Monocytes % (Manual) Eosinophils % (Manual) Basophils % (Manual) Metamyelocytes % (Man) Myelocytes % (Man) Promyelocytes % (Man) Blast Cells % (Manual) Plasma Cell % (Manual) Other Cells % Nucleated RBC % Neutrophils # (Manual) Band Neutrophils # Total Absolute Neuts Lymphocytes # (Manual) Prolymphocyte # Reactive Lymphs # Total Abs Lymphocytes Monocytes # (Manual) Eosinophils # (Manual) Basophils # (Manual) Metamyelocytes # (Man) Myelocytes # (Manual) Promyelocytes # (Man) Blast Cells # (Man) Plasma Cell # (Manual) Other Cells # Nucleated RBCs # (Man) Hypersegmented Neuts Hyposegmented Neuts Hypogranular Neuts Large Granular Lymphs # Lrg Granular Lymphs Hairy Cells Smudge Cells Toxic Granulation Toxic Vacuolation Dohle Bodies Kody Rods Platelet Estimate Hypogranular Platelets Clumped Platelets Giant Platelets Platelet Satelliting RBC Morphology Polychromasia Hypochromasia Poikilocytosis Basophilic Stippling Anisocytosis Microcytosis Macrocytosis Spherocytes Pappenheimer Bodies Sickle Cells Target Cells Tear Drop Cells Ovalocytes Stomatocytes Galo-Brightwood Bodies Echinocytes Acanthocytes (Spur) Rouleaux RBC Agglutinates Schistocytes RBC Morph Comment Sezary Cell Sodium 119 L* (136-145) mmol/L Potassium (3.5-5.1) mmol/L Chloride 84 L (98-107) mmol/L Carbon Dioxide 24 (21-32) mmol/L Anion Gap 11.0 (3-11) BUN 10 (7-18) mg/dl Creatinine 0.67 D (0.6-1.4) mg/dl Est Cr Clr Drug Dosing Not Reportable Est GFR ( Amer) 142.3 Est GFR (Non-Af Amer) 122.8 BUN/Creatinine Ratio 14.6 (10-20) Glucose 112 H (70-99) mg/dl POC Glucose 109 H (70-99) mg/dl Osmolality 253 L (280-300) mOsm/kg Calcium 7.3 L (8.5-10.1) mg/dl Magnesium TNP Total Bilirubin (0.2-1) mg/dl AST (15-37) U/L ALT (12-78) U/L Alkaline Phosphatase (45-117) U/L Total Creatine Kinase Troponin I (0-0.045) ng/ml Total Protein (6.4-8.2) gm/dl Albumin (3.4-5.0) gm/dl Globulin (2.5-4.0) gm/dl Albumin/Globulin Ratio (0.9-2) TSH (0.300-4.500) uIu/ml Urine Osmolality (500-800) mOsm/kg Urine Sodium mmol/L Urine Potassium mmol/L Urine Chloride mmol/L Nasal Screen MRSA (PCR) Gastric Fluid pH Gastric Occult Blood (Negative) Urine Opiates Screen (Neg) Ur Methadone, Qual (Neg) Urine Barbiturates (Neg) Ur Phencyclidine (PCP) (Neg) U Amphetamin/Meth Scrn (Neg) MDMA (Ecstasy) Screen (Neg) U Benzodiazepines Scrn (Neg) Ur Cocaine Metabolite (Neg) U Marijuana (THC) Screen (Neg) Ethyl Alcohol mg/dL (0-3) mg/dl 01/18/20 01/18/20 01/18/20 Range/Units 15:49 15:48 14:45 WBC 17.06 H RBC 4.72 Hgb 15.4 Hct 41.9 L MCV 88.8 MCH 32.6 MCHC 36.8 H RDW Std Deviation 37.7 RDW Coeff of Jovanni 11.6 Plt Count 122 L MPV 10.2 Immature Gran % (Auto) 0.3 Neut % (Auto) 85.1 Lymph % (Auto) 4.6 [place] % (Auto) 9.7 Eos % (Auto) 0.2 Baso % (Auto) 0.1 Immature Gran # (Auto) 0.05 H Neut # (Auto) 14.53 H Lymph # (Auto) 0.79 L [place] # (Auto) 1.65 H Eos # (Auto) 0.03 Baso # (Auto) 0.01 Absolute Nucleated RBC Nucleated RBC % (auto) Neutrophils % (Manual) Band Neutrophils % Lymphocytes % (Manual) Prolymphocyte % Reactive Lymphs % (Man) Monocytes % (Manual) Eosinophils % (Manual) Basophils % (Manual) Metamyelocytes % (Man) Myelocytes % (Man) Promyelocytes % (Man) Blast Cells % (Manual) Plasma Cell % (Manual) Other Cells % Nucleated RBC % Neutrophils # (Manual) Band Neutrophils # Total Absolute Neuts Lymphocytes # (Manual) Prolymphocyte # Reactive Lymphs # Total Abs Lymphocytes Monocytes # (Manual) Eosinophils # (Manual) Basophils # (Manual) Metamyelocytes # (Man) Myelocytes # (Manual) Promyelocytes # (Man) Blast Cells # (Man) Plasma Cell # (Manual) Other Cells # Nucleated RBCs # (Man) Hypersegmented Neuts Hyposegmented Neuts Hypogranular Neuts Large Granular Lymphs # Lrg Granular Lymphs Hairy Cells Smudge Cells Toxic Granulation Toxic Vacuolation Dohle Bodies Kody Rods Platelet Estimate Hypogranular Platelets Clumped Platelets Giant Platelets Platelet Satelliting RBC Morphology Polychromasia Hypochromasia Poikilocytosis Basophilic Stippling Anisocytosis Microcytosis Macrocytosis Spherocytes Pappenheimer Bodies Sickle Cells Target Cells Tear Drop Cells Ovalocytes Stomatocytes Galo-Brightwood Bodies Echinocytes Acanthocytes (Spur) Rouleaux RBC Agglutinates Schistocytes RBC Morph Comment Sezary Cell Sodium (136-145) mmol/L Potassium (3.5-5.1) mmol/L Chloride (98-107) mmol/L Carbon Dioxide (21-32) mmol/L Anion Gap (3-11) BUN (7-18) mg/dl Creatinine (0.6-1.4) mg/dl Est Cr Clr Drug Dosing Est GFR ( Amer) Est GFR (Non-Af Amer) BUN/Creatinine Ratio (10-20) Glucose (70-99) mg/dl POC Glucose 123 H (70-99) mg/dl Osmolality (280-300) mOsm/kg Calcium (8.5-10.1) mg/dl Magnesium Total Bilirubin (0.2-1) mg/dl AST (15-37) U/L ALT (12-78) U/L Alkaline Phosphatase (45-117) U/L Total Creatine Kinase Troponin I (0-0.045) ng/ml Total Protein (6.4-8.2) gm/dl Albumin (3.4-5.0) gm/dl Globulin (2.5-4.0) gm/dl Albumin/Globulin Ratio (0.9-2) TSH (0.300-4.500) uIu/ml Urine Osmolality (500-800) mOsm/kg Urine Sodium mmol/L Urine Potassium mmol/L Urine Chloride mmol/L Nasal Screen MRSA (PCR) Gastric Fluid pH 5-7 Gastric Occult Blood Negative (Negative) Urine Opiates Screen (Neg) Ur Methadone, Qual (Neg) Urine Barbiturates (Neg) Ur Phencyclidine (PCP) (Neg) U Amphetamin/Meth Scrn (Neg) MDMA (Ecstasy) Screen (Neg) U Benzodiazepines Scrn (Neg) Ur Cocaine Metabolite (Neg) U Marijuana (THC) Screen (Neg) Ethyl Alcohol mg/dL (0-3) mg/dl 03/18/20 03/18/20 03/18/20 Range/Units 14:45 14:41 14:41 WBC RBC Hgb Hct MCV MCH MCHC RDW Std Deviation RDW Coeff of Jovanni Plt Count MPV Immature Gran % (Auto) Neut % (Auto) Lymph % (Auto) [place] % (Auto) Eos % (Auto) Baso % (Auto) Immature Gran # (Auto) Neut # (Auto) Lymph # (Auto) [place] # (Auto) Eos # (Auto) Baso # (Auto) Absolute Nucleated RBC Nucleated RBC % (auto) Neutrophils % (Manual) Band Neutrophils % Lymphocytes % (Manual) Prolymphocyte % Reactive Lymphs % (Man) Monocytes % (Manual) Eosinophils % (Manual) Basophils % (Manual) Metamyelocytes % (Man) Myelocytes % (Man) Promyelocytes % (Man) Blast Cells % (Manual) Plasma Cell % (Manual) Other Cells % Nucleated RBC % Neutrophils # (Manual) Band Neutrophils # Total Absolute Neuts Lymphocytes # (Manual) Prolymphocyte # Reactive Lymphs # Total Abs Lymphocytes Monocytes # (Manual) Eosinophils # (Manual) Basophils # (Manual) Metamyelocytes # (Man) Myelocytes # (Manual) Promyelocytes # (Man) Blast Cells # (Man) Plasma Cell # (Manual) Other Cells # Nucleated RBCs # (Man) Hypersegmented Neuts Hyposegmented Neuts Hypogranular Neuts Large Granular Lymphs # Lrg Granular Lymphs Hairy Cells Smudge Cells Toxic Granulation Toxic Vacuolation Dohle Bodies Kody Rods Platelet Estimate Hypogranular Platelets Clumped Platelets Giant Platelets Platelet Satelliting RBC Morphology Polychromasia Hypochromasia Poikilocytosis Basophilic Stippling Anisocytosis Microcytosis Macrocytosis Spherocytes Pappenheimer Bodies Sickle Cells Target Cells Tear Drop Cells Ovalocytes Stomatocytes Galo-Brightwood Bodies Echinocytes Acanthocytes (Spur) Rouleaux RBC Agglutinates Schistocytes RBC Morph Comment Sezary Cell Sodium (136-145) mmol/L Potassium (3.5-5.1) mmol/L Chloride (98-107) mmol/L Carbon Dioxide (21-32) mmol/L Anion Gap (3-11) BUN (7-18) mg/dl Creatinine (0.6-1.4) mg/dl Est Cr Clr Drug Dosing Est GFR ( Amer) Est GFR (Non-Af Amer) BUN/Creatinine Ratio (10-20) Glucose (70-99) mg/dl POC Glucose 127 H (70-99) mg/dl Osmolality (280-300) mOsm/kg Calcium (8.5-10.1) mg/dl Magnesium Total Bilirubin (0.2-1) mg/dl AST (15-37) U/L ALT (12-78) U/L Alkaline Phosphatase (45-117) U/L Total Creatine Kinase Troponin I (0-0.045) ng/ml Total Protein (6.4-8.2) gm/dl Albumin (3.4-5.0) gm/dl Globulin (2.5-4.0) gm/dl Albumin/Globulin Ratio (0.9-2) TSH (0.300-4.500) uIu/ml Urine Osmolality (500-800) mOsm/kg Urine Sodium mmol/L Urine Potassium mmol/L Urine Chloride mmol/L Nasal Screen MRSA (PCR) Gastric Fluid pH Gastric Occult Blood (Negative) Urine Opiates Screen Neg (Neg) Ur Methadone, Qual Neg (Neg) Urine Barbiturates Neg (Neg) Ur Phencyclidine (PCP) Neg (Neg) U Amphetamin/Meth Scrn Neg (Neg) MDMA (Ecstasy) Screen Neg (Neg) U Benzodiazepines Scrn Neg (Neg) Ur Cocaine Metabolite Neg (Neg) U Marijuana (THC) Screen Neg (Neg) Ethyl Alcohol mg/dL < 3.0 (0-3) mg/dl 01/18/20 01/18/20 Range/Units 14:41 14:41 WBC Cancelled RBC Cancelled Hgb Cancelled Hct Cancelled MCV Cancelled MCH Cancelled MCHC Cancelled RDW Std Deviation Cancelled RDW Coeff of Jovanni Cancelled Plt Count Cancelled MPV Cancelled Immature Gran % (Auto) Cancelled Neut % (Auto) Cancelled Lymph % (Auto) Cancelled [place] % (Auto) Cancelled Eos % (Auto) Cancelled Baso % (Auto) Cancelled Immature Gran # (Auto) Cancelled Neut # (Auto) Cancelled Lymph # (Auto) Cancelled [place] # (Auto) Cancelled Eos # (Auto) Cancelled Baso # (Auto) Cancelled Absolute Nucleated RBC Cancelled Nucleated RBC % (auto) Cancelled Neutrophils % (Manual) Cancelled Band Neutrophils % Cancelled Lymphocytes % (Manual) Cancelled Prolymphocyte % Cancelled Reactive Lymphs % (Man) Cancelled Monocytes % (Manual) Cancelled Eosinophils % (Manual) Cancelled Basophils % (Manual) Cancelled Metamyelocytes % (Man) Cancelled Myelocytes % (Man) Cancelled Promyelocytes % (Man) Cancelled Blast Cells % (Manual) Cancelled Plasma Cell % (Manual) Cancelled Other Cells % Cancelled Nucleated RBC % Cancelled Neutrophils # (Manual) Cancelled Band Neutrophils # Cancelled Total Absolute Neuts Cancelled Lymphocytes # (Manual) Cancelled Prolymphocyte # Cancelled Reactive Lymphs # Cancelled Total Abs Lymphocytes Cancelled Monocytes # (Manual) Cancelled Eosinophils # (Manual) Cancelled Basophils # (Manual) Cancelled Metamyelocytes # (Man) Cancelled Myelocytes # (Manual) Cancelled Promyelocytes # (Man) Cancelled Blast Cells # (Man) Cancelled Plasma Cell # (Manual) Cancelled Other Cells # Cancelled Nucleated RBCs # (Man) Cancelled Hypersegmented Neuts Cancelled Hyposegmented Neuts Cancelled Hypogranular Neuts Cancelled Large Granular Lymphs Cancelled # Lrg Granular Lymphs Cancelled Hairy Cells Cancelled Smudge Cells Cancelled Toxic Granulation Cancelled Toxic Vacuolation Cancelled Dohle Bodies Cancelled Kody Rods Cancelled Platelet Estimate Cancelled Hypogranular Platelets Cancelled Clumped Platelets Cancelled Giant Platelets Cancelled Platelet Satelliting Cancelled RBC Morphology Cancelled Polychromasia Cancelled Hypochromasia Cancelled Poikilocytosis Cancelled Basophilic Stippling Cancelled Anisocytosis Cancelled Microcytosis Cancelled Macrocytosis Cancelled Spherocytes Cancelled Pappenheimer Bodies Cancelled Sickle Cells Cancelled Target Cells Cancelled Tear Drop Cells Cancelled Ovalocytes Cancelled Stomatocytes Cancelled Galo-[place]rightwood Bodies Cancelled Echinocytes Cancelled Acanthocytes (Spur) Cancelled Rouleaux Cancelled RBC Agglutinates Cancelled Schistocytes Cancelled RBC Morph Comment Cancelled Sezary Cell Cancelled Sodium 117 L* (136-145) mmol/L Potassium (3.5-5.1) mmol/L Chloride 80 L (98-107) mmol/L Carbon Dioxide 22 (21-32) mmol/L Anion Gap 15.0 H (3-11) BUN 10 (7-18) mg/dl Creatinine 1.01 (0.6-1.4) mg/dl Est Cr Clr Drug Dosing Not Reportable Est GFR ( Amer) 109.6 Est GFR (Non-Af Amer) 94.6 BUN/Creatinine Ratio 9.4 L (10-20) Glucose 117 H (70-99) mg/dl POC Glucose (70-99) mg/dl Osmolality (280-300) mOsm/kg Calcium 8.1 L (8.5-10.1) mg/dl Magnesium TNP Total Bilirubin 0.9 (0.2-1) mg/dl AST (15-37) U/L ALT 32 (12-78) U/L Alkaline Phosphatase 57 (45-117) U/L Total Creatine Kinase TNP Troponin I < 0.015 (0-0.045) ng/ml Total Protein 7.7 (6.4-8.2) gm/dl Albumin 3.9 (3.4-5.0) gm/dl Globulin 3.8 (2.5-4.0) gm/dl Albumin/Globulin Ratio 1.0 (0.9-2) TSH 3.350 (0.300-4.500) uIu/ml Urine Osmolality (500-800) mOsm/kg Urine Sodium mmol/L Urine Potassium mmol/L Urine Chloride mmol/L Nasal Screen MRSA (PCR) Gastric Fluid pH Gastric Occult Blood (Negative) Urine Opiates Screen (Neg) Ur Methadone, Qual (Neg) Urine Barbiturates (Neg) Ur Phencyclidine (PCP) (Neg) U Amphetamin/Meth Scrn (Neg) MDMA (Ecstasy) Screen (Neg) U Benzodiazepines Scrn (Neg) Ur Cocaine Metabolite (Neg) U Marijuana (THC) Screen (Neg) Ethyl Alcohol mg/dL (0-3) mg/dl Medications Administered Current Inpatient Medications Propofol (Diprivan) 1,000 mg in 100 mls @ 18.648 mls/hr IV .Q5H22M [facility]; Protocol Stop: 01/21/20 15:14 Last Titration: 01/18/20 18:03 Dose: 40 mcg/kg/min, 18.6 mls/hr Documented by: Desmopressin Acetate 2 mcg/ (Sodium Chloride) 50.5 mls @ 100 mls/hr IV Q8H [facility] Stop: 02/17/20 16:14 Last Infusion: 01/18/20 17:39 Dose: Infused Documented by: Famotidine 20 mg/ Syringe 5 mls @ 2.5 mls/min IV DAILY [facility] Stop: 02/18/20 08:59 Midazolam HCl (Versed) 1 mg IV Q2H PRN PRN Reason: agitation/anxiety Stop: 02/17/20 18:14 Miscellaneous (Icu Protocol For Hyperglycemia) 1 ea N/A PRN PRN; Protocol PRN Reason: Hyperglycemia Protocol Stop: 01/20/20 17:34 Resident Activity Tracking Resident Involvement: Resident Care Provided Care Provided: Adult Hospital Medicine (1) Altered mental status Altered mental status type: unspecified Qualified Code(s): R41.82 - Altered mental status, unspecified
[2020-01-18 19:41] LABS: BUN Creatinine Ratio 13.5 (10-20); Calcium 7.9 mg/dl (8.5-10.1); Creatinine Clr Calc Pharmacy 149.6 ml/min; Est GFR (African American) 138.1; Est GFR (Non-African American) 119.2; Potassium 2.8 mmol/L (3.5-5.1)
[2020-01-18] MEDS: MAGNESIUM SULFATE / D5W 1 GM/100 ML BAG IV SCH ×2 (20:18→21:14)
[2020-01-18] MEDS: POTASSIUM CHLORIDE / WTR 10 MEQ/100 ML PLCT IV SCH ×4 (20:19→23:51)
--- NOTE | 2020-01-18 20:22 | Billing Data ---
Date of Service January 18, 2020 Coding Level of Care Code Critical Care 1st 30-74 mins Time Spent (min) 65
[2020-01-18] MEDS: MIDAZOLAM HCL 1 MG/ML 2ML VIAL IV PRN (21:57)
[2020-01-19] MEDS: POTASSIUM CHLORIDE / WTR 10 MEQ/100 ML PLCT IV SCH (00:15)
[2020-01-19] MEDS: MIDAZOLAM HCL 1 MG/ML 2ML VIAL IV PRN ×3 (00:42→22:59)
[2020-01-19 01:07] LABS: BUN Creatinine Ratio 14.3 (10-20); Calcium 7.8 mg/dl (8.5-10.1); Creatinine Clr Calc Pharmacy 160.8 ml/min; Est GFR (African American) 142.3; Est GFR (Non-African American) 122.8; Potassium 2.8 mmol/L (3.5-5.1)
[2020-01-19] MEDS ORDERED: POTASSIUM CHLORIDE 20 MEQ/15 ML UDC PO STA ×3 (01:30→17:03)
[2020-01-19 02:17] LABS: iSTAT Art Bld Gas pCO2 Correct 42 mmHg (35-46); iSTAT Art Bld Gas pH Corrected 7.495 (7.35-7.45); iSTAT Arterial Blood Gas HCO3 32 meg/L (19-24); iSTAT Arterial Blood Gas pCO2 41 mmHg (35-46); iSTAT Arterial Blood Gas pH 7.51 (7.35-7.45); iSTAT Arterial Blood Gas pO2 175 mmHg (80-95); iSTAT Arterial Blood Gas pO2 C 180; iSTAT Carbon Dioxide 33 mmol/L (24-31); iSTAT FiO2 40 %; iSTAT Hematocrit 40 % (42-52); iSTAT Hemoglobin 13.6 g/dl (14.0-18.0); iSTAT Potassium 2.8 mmol/L (3.3-5.0); iSTAT Site L Brachial; iSTAT Sodium 118 mmol/L (135-144)
[2020-01-19 03:21] LABS: Hematocrit (blood only) 36.8 % (42-52); Hemoglobin 13.6 g/dL (14.0-18.0); Mean Corpuscular Hemoglobin 32.2 pg (25-34); Mean Corpuscular Volume 87.2 fL (80-100); Platelet Count 132 K/uL (130-400); RDW Coefficient of Variation 11.9 % (11.5-14.5); RDW Standard Deviation 37.7 fL (36.4-46.3); Red Blood Count 4.22 M/uL (4.7-6.1); White Blood Count 10.83 K/uL (4.8-10.8)
[2020-01-19 03:49] LABS: BUN Creatinine Ratio 15.5 (10-20); Calcium 7.6 mg/dl (8.5-10.1); Creatinine Clr Calc Pharmacy 159.2 ml/min; Est GFR (African American) 147.9; Est GFR (Non-African American) 127.6; Potassium 2.8 mmol/L (3.5-5.1)
[2020-01-19] MEDS: propofoL 1,000 MG/100 ML VIAL IV SCH ×6 (04:02→21:36)
[2020-01-19 04:44] LABS: Magnesium 1.7 mg/dl (1.8-2.4); Phosphorus 1.5 mg/dl (2.5-4.9)
[2020-01-19] MEDS ORDERED: MAGNESIUM OXIDE 400 MG TAB PO ONE ×2 (04:54→08:50)
[2020-01-19] MEDS ORDERED: POT PHOSPHATE MONOBASIC W/ SOD TAB PO ONE (04:55)
--- NOTE | 2020-01-19 07:46 | Critical Care Progress Note ---
Date of Service January 19, 2020 Assessment & Plan (1) Altered mental status: Nic Ferrell is a 39 y/o M who presents from [facility] custodial. The patient was found just prior to arrival in the ED by his cellmate unresponsive and confused and combative. NEURO: - [facility] ICU: unable to assess due to intubation and sedation - Altered mental status: patient pulling at shackles causing abrasions to upper extremities - sedation with Propofol - Versed 1mg Q2h PRN for continued agitation - ?Psychogenic polydipsia verse synthetic drug use verse medication overdose - conversation with Janet from [facility], cell search did not demonstrate increased use of HCTZ or synthetic drugs, did demonstrate 3 fully empty packs of Bentyl (increased usage, over unknown timeframe) CARDIAC/VASCULAR: - no significant medical history of cardiovascular disease RESPIRATORY: - intubated - Volume AC PEEP 5, FiO2 30 - CXR without evidence of active disease GI/NUTRITION: - NPO - prophylaxis: Pepcid RENAL/LYTES: - sodium on admission 117, last check at 0720 Na 120, Mg 1.9, K 3.1 - patient received 1 dose of DDAVP overnight - serum osmolality 253 on admission; today urine osm 757 - previously had Na of 128 on 09/24/2019 - continue BMPs Q4h : - Modi in place - patient does take tamsulosin - 8.4L out since admission; from [id number] urine output 590 - continue to monitor strict I/Os ENDO: - no history of hypo/hyperthyroidism, no T2DM HEME: - H&H stable ID: - unlikely to be infectious source - white count initially elevated on admission to 17, but downtrended to 10.8 this AM LINES/IV ACCESS: - peripheral IVs - endotracheal tube DVT PROPHYLAXIS: - SCDs Admission and Anticipated Discharge Date Admission Date: January 18, 2020 Supervising Physician Co-Signing Physician Notes Dr. Corral was resident physician during care of patient. I separately evaluated patient for breen portions of the history and the exam. I was present during the critical portion of medical decision making, and I discussed the case with the resident. I generally agree with the findings and plan. Discontinuing DDAVP, discussed with nephrology adding crystalloid solution continued close evaluation of sodiums, patient remains critically ill, continued intubation due to aggressive nature and inability to follow complex commands. Subjective Patient is intubated and sedated, no acute events overnight; received one dose of DDAVP at 2200 for concern of continued overcorrection at that time; has continued to produce urine throughout the day. Review of Systems Review of Systems: Unobtainable due to endotracheal tube Physical Exam Constitutional: WD/WN, vitals as above Eyes: PERRL and reactive pupils; no conjunctival abnormality and no scleral abnormality ENMT: external ear and nose normal, oropharynx normal Neck: normal visual inspection Respiratory: no respiratory distress (intubated) and no cough Auscultation: + crackles; no rales, no rhonchi and no wheezes Cardiovascular: Rate/Rhythm: regular rate and regular rhythm Heart Sounds: normal S1 and normal S2; no gallop, no murmur and no cardiac rub Vessels: no JVD Extremities: no pedal edema Gastrointestinal (Abdomen): Inspection/Auscultation: abdomen normal to inspection and normal bowel sounds; abdomen not distended Percussion /Palpation: abdomen soft; no guarding Skin: no rashes, warm and dry Neurologic: spontaneously moves all extremities spontaneously, pulling against shackles and soft restrains Genitourinary: dark concentrated urine in modi Lymphatic: no cervical or axillary lymphadenopathy Results & Data ([facility]) Vital Signs (Past 12 Hours) Vital Signs Temp Pulse Resp BP Pulse Ox 01/19/20 07:41 83 14 99 01/19/20 06:21 80 114/75 100 01/19/20 05:51 80 98/61 L 97 01/19/20 05:22 14 01/19/20 05:21 80 91/63 L 98 01/19/20 04:51 37.0 C 77 102/62 100 01/19/20 04:21 80 88/58 L 98 01/19/20 03:51 82 92/55 L 97 01/19/20 03:21 81 93/59 L 98 01/19/20 02:51 83 93/59 L 96 01/19/20 02:25 83 14 97 01/19/20 02:21 82 97/56 L 98 01/19/20 01:51 88 120/75 90 01/19/20 01:21 80 111/68 100 01/19/20 00:50 77 102/68 100 01/19/20 00:20 78 89/57 L 98 01/18/20 23:53 83 01/18/20 23:51 81 95/55 L 99 01/18/20 23:20 37.8 C H 82 109/68 100 01/18/20 22:50 85 105/68 100 01/18/20 22:31 85 14 100 01/18/20 22:20 85 101/61 100 01/18/20 22:05 85 100 01/18/20 22:00 95 H 113/84 100 01/18/20 21:55 121 H 100 01/18/20 21:50 79 100 01/18/20 21:21 80 98/60 L 100 01/18/20 20:51 79 87/60 L 100 01/18/20 20:20 72 91/57 L 100 01/18/20 20:11 71 14 100 01/18/20 19:50 70 89/54 L 99 Laboratory Results 01/19/20 01/19/20 01/19/20 Range/Units 18:18 15:10 15:00 WBC (4.8-10.8) K/uL RBC (4.7-6.1) M/uL Hgb (14.0-18.0) g/dL POC Hgb (14.0-18.0) g/dl Hct (42-52) % POC Hct (42-52) % MCV (80-100) fL MCH (25-34) pg MCHC (32-36) g/dL RDW Std Deviation (36.4-46.3) fL RDW Coeff of Jovanni (11.5-14.5) % Plt Count (130-400) K/uL MPV (7.4-10.4) fL Sample Site POC pH (7.35-7.45) POC pCO2 (35-46) mmHg POC pO2 (80-95) mmHg POC HCO3 (19-24) alexandr/L POC Total CO2 (24-31) mmol/L POC Base Excess (-9-1.8) alexandr/L ABG pH (Temp Correct) (7.35-7.45) ABG pCO2 (Temp Corrct (35-46) mmHg POC ABG pO2 at Pt Temp Skinny Test O2 Delivery Device POC O2 Rate Minute Ventilation POC FiO2 % Tidal Volume PEEP POC Sodium (135-144) mmol/L Sodium 120 L (136-145) mmol/L POC Potassium (3.3-5.0) mmol/L Potassium 3.1 L (3.5-5.1) mmol/L Chloride 85 L (98-107) mmol/L Carbon Dioxide 26 (21-32) mmol/L Anion Gap 9.0 (3-11) BUN 7 (7-18) mg/dl Creatinine 0.55 L (0.6-1.4) mg/dl Est Cr Clr Drug Dosing 176.6 ml/min Est GFR ( Amer) > 150.0 Est GFR (Non-Af Amer) 133.1 BUN/Creatinine Ratio 12.1 (10-20) Glucose 101 H (70-99) mg/dl POC Glucose 90 (70-99) mg/dl Calcium 7.3 L (8.5-10.1) mg/dl Phosphorus 2.8 (2.5-4.9) mg/dl Magnesium 1.9 (1.8-2.4) mg/dl Urine Osmolality 757 (500-800) mOsm/kg Nasal Screen MRSA (PCR) (Negative) 01/19/20 01/19/20 01/19/20 Range/Units 11:16 09:40 07:21 WBC (4.8-10.8) K/uL RBC (4.7-6.1) M/uL Hgb (14.0-18.0) g/dL POC Hgb (14.0-18.0) g/dl Hct (42-52) % POC Hct (42-52) % MCV (80-100) fL MCH (25-34) pg MCHC (32-36) g/dL RDW Std Deviation (36.4-46.3) fL RDW Coeff of Jovanni (11.5-14.5) % Plt Count (130-400) K/uL MPV (7.4-10.4) fL Sample Site POC pH (7.35-7.45) POC pCO2 (35-46) mmHg POC pO2 (80-95) mmHg POC HCO3 (19-24) alexandr/L POC Total CO2 (24-31) mmol/L POC Base Excess (-9-1.8) alexandr/L ABG pH (Temp Correct) (7.35-7.45) ABG pCO2 (Temp Corrct (35-46) mmHg POC ABG pO2 at Pt Temp Skinny Test O2 Delivery Device POC O2 Rate Minute Ventilation POC FiO2 % Tidal Volume PEEP POC Sodium (135-144) mmol/L Sodium 119 L* (136-145) mmol/L POC Potassium (3.3-5.0) mmol/L Potassium 2.9 L (3.5-5.1) mmol/L Chloride 84 L (98-107) mmol/L Carbon Dioxide 27 (21-32) mmol/L Anion Gap 8.0 (3-11) BUN 9 (7-18) mg/dl Creatinine 0.64 (0.6-1.4) mg/dl Est Cr Clr Drug Dosing 151.8 ml/min Est GFR ( Amer) 145.0 Est GFR (Non-Af Amer) 125.1 BUN/Creatinine Ratio 13.7 (10-20) Glucose 91 (70-99) mg/dl POC Glucose (70-99) mg/dl Calcium 7.4 L (8.5-10.1) mg/dl Phosphorus Cancelled (2.5-4.9) mg/dl Magnesium Cancelled (1.8-2.4) mg/dl Urine Osmolality 792 (500-800) mOsm/kg Nasal Screen MRSA (PCR) (Negative) 01/19/20 01/19/20 01/19/20 Range/Units 07:21 03:10 03:10 WBC 10.83 H (4.8-10.8) K/uL RBC 4.22 L (4.7-6.1) M/uL Hgb 13.6 L (14.0-18.0) g/dL POC Hgb (14.0-18.0) g/dl Hct 36.8 L (42-52) % POC Hct (42-52) % MCV 87.2 (80-100) fL MCH 32.2 (25-34) pg MCHC 37.0 H (32-36) g/dL RDW Std Deviation 37.7 (36.4-46.3) fL RDW Coeff of Jovanni 11.9 (11.5-14.5) % Plt Count 132 (130-400) K/uL MPV 10.0 (7.4-10.4) fL Sample Site POC pH (7.35-7.45) POC pCO2 (35-46) mmHg POC pO2 (80-95) mmHg POC HCO3 (19-24) alexandr/L POC Total CO2 (24-31) mmol/L POC Base Excess (-9-1.8) alexandr/L ABG pH (Temp Correct) (7.35-7.45) ABG pCO2 (Temp Corrct (35-46) mmHg POC ABG pO2 at Pt Temp Skinny Test O2 Delivery Device POC O2 Rate Minute Ventilation POC FiO2 % Tidal Volume PEEP POC Sodium (135-144) mmol/L Sodium 119 L* 120 L (136-145) mmol/L POC Potassium (3.3-5.0) mmol/L Potassium 3.1 L 2.8 L (3.5-5.1) mmol/L Chloride 84 L 83 L (98-107) mmol/L Carbon Dioxide 26 28 (21-32) mmol/L Anion Gap 9.0 8.0 (3-11) BUN 8 9 (7-18) mg/dl Creatinine 0.61 0.61 (0.6-1.4) mg/dl Est Cr Clr Drug Dosing 159.2 159.2 ml/min Est GFR ( Amer) 147.9 147.9 Est GFR (Non-Af Amer) 127.6 127.6 BUN/Creatinine Ratio 13.8 15.5 (10-20) Glucose 99 97 (70-99) mg/dl POC Glucose (70-99) mg/dl Calcium 7.9 L 7.6 L (8.5-10.1) mg/dl Phosphorus 1.9 L 1.5 L* (2.5-4.9) mg/dl Magnesium 1.7 L 1.7 L (1.8-2.4) mg/dl Urine Osmolality (500-800) mOsm/kg Nasal Screen MRSA (PCR) (Negative) 01/19/20 01/18/20 01/18/20 Range/Units 02:03 Unknown 23:23 WBC (4.8-10.8) K/uL RBC (4.7-6.1) M/uL Hgb (14.0-18.0) g/dL POC Hgb 13.6 L (14.0-18.0) g/dl Hct (42-52) % POC Hct 40 L (42-52) % MCV (80-100) fL MCH (25-34) pg MCHC (32-36) g/dL RDW Std Deviation (36.4-46.3) fL RDW Coeff of Jovanni (11.5-14.5) % Plt Count (130-400) K/uL MPV (7.4-10.4) fL Sample Site L Brachial POC pH 7.51 H* (7.35-7.45) POC pCO2 41 (35-46) mmHg POC pO2 175 H (80-95) mmHg POC HCO3 32 H (19-24) alexandr/L POC Total CO2 33 H (24-31) mmol/L POC Base Excess 9.0 H (-9-1.8) alexandr/L ABG pH (Temp Correct) 7.495 H (7.35-7.45) ABG pCO2 (Temp Corrct 42 (35-46) mmHg POC ABG pO2 at Pt Temp 180 Skinny Test NA O2 Delivery Device Ventilator POC O2 Rate 14 Minute Ventilation 6.8 POC FiO2 40 % Tidal Volume 500 PEEP 5 POC Sodium 118 L* (135-144) mmol/L Sodium 121 L (136-145) mmol/L POC Potassium 2.8 L (3.3-5.0) mmol/L Potassium 2.8 L (3.5-5.1) mmol/L Chloride 82 L (98-107) mmol/L Carbon Dioxide 29 (21-32) mmol/L Anion Gap 10.0 (3-11) BUN 10 (7-18) mg/dl Creatinine 0.67 (0.6-1.4) mg/dl Est Cr Clr Drug Dosing 160.8 ml/min Est GFR ( Amer) 142.3 Est GFR (Non-Af Amer) 122.8 BUN/Creatinine Ratio 14.3 (10-20) Glucose 88 (70-99) mg/dl POC Glucose (70-99) mg/dl Calcium 7.8 L (8.5-10.1) mg/dl Phosphorus (2.5-4.9) mg/dl Magnesium (1.8-2.4) mg/dl Urine Osmolality (500-800) mOsm/kg Nasal Screen MRSA (PCR) Negative (Negative) 01/18/20 Range/Units 19:17 WBC (4.8-10.8) K/uL RBC (4.7-6.1) M/uL Hgb (14.0-18.0) g/dL POC Hgb (14.0-18.0) g/dl Hct (42-52) % POC Hct (42-52) % MCV (80-100) fL MCH (25-34) pg MCHC (32-36) g/dL RDW Std Deviation (36.4-46.3) fL RDW Coeff of Jovanni (11.5-14.5) % Plt Count (130-400) K/uL MPV (7.4-10.4) fL Sample Site POC pH (7.35-7.45) POC pCO2 (35-46) mmHg POC pO2 (80-95) mmHg POC HCO3 (19-24) alexandr/L POC Total CO2 (24-31) mmol/L POC Base Excess (-9-1.8) alexandr/L ABG pH (Temp Correct) (7.35-7.45) ABG pCO2 (Temp Corrct (35-46) mmHg POC ABG pO2 at Pt Temp Skinny Test O2 Delivery Device POC O2 Rate Minute Ventilation POC FiO2 % Tidal Volume PEEP POC Sodium (135-144) mmol/L Sodium 123 L (136-145) mmol/L POC Potassium (3.3-5.0) mmol/L Potassium 2.8 L (3.5-5.1) mmol/L Chloride 85 L (98-107) mmol/L Carbon Dioxide 29 (21-32) mmol/L Anion Gap 9.0 (3-11) BUN 10 (7-18) mg/dl Creatinine 0.72 (0.6-1.4) mg/dl Est Cr Clr Drug Dosing 149.6 ml/min Est GFR ( Amer) 138.1 Est GFR (Non-Af Amer) 119.2 BUN/Creatinine Ratio 13.5 (10-20) Glucose 104 H (70-99) mg/dl POC Glucose (70-99) mg/dl Calcium 7.9 L (8.5-10.1) mg/dl Phosphorus (2.5-4.9) mg/dl Magnesium (1.8-2.4) mg/dl Urine Osmolality (500-800) mOsm/kg Nasal Screen MRSA (PCR) (Negative) Medications Administered Current Inpatient Medications Propofol (Diprivan) 1,000 mg in 100 mls @ 23.31 mls/hr IV .Q4H18M [facility]; Protocol Stop: 01/21/20 15:14 Last Admin: 01/19/20 17:11 Dose: 50 mcg/kg/min, 23.3 mls/hr Documented by: Famotidine 20 mg/ Syringe 5 mls @ 2.5 mls/min IV DAILY [facility] Stop: 02/18/20 08:59 Last Admin: 01/19/20 08:39 Dose: 2.5 mls/min Documented by: Sodium Chloride 257 meq/ (Sterile Water) 1,000 mls @ 100 mls/hr IV .Q10H [facility] Stop: 01/19/20 23:44 Last Admin: 01/19/20 14:03 Dose: 80 mls/hr Documented by: Midazolam HCl (Versed) 1 mg IV Q2H PRN PRN Reason: agitation/anxiety Stop: 02/17/20 18:14 Last Admin: 01/19/20 08:40 Dose: 1 mg Documented by: Miscellaneous (Icu Protocol For Hyperglycemia) 1 ea N/A PRN PRN; Protocol PRN Reason: Hyperglycemia Protocol Stop: 01/20/20 17:34 Potassium Phosphate (Phospha 250 Neutral 155-852-130 Mg) 2 tab PO QID [facility] Stop: 02/18/20 08:59 Last Admin: 01/19/20 17:14 Dose: 2 tab Documented by: Critical Care Time Critical Care Time: Yes Total Critical Care Time: 40 I have personally spent 40 minutes of critical care time in the direct management of this patient. This is a life/limb threatening event. This includes time spent evaluating patient, direct bedside care, chart review, placing orders, interpretation of diagnostic studies, discussion with consultants, patient, and/or family members regarding treatment decisions, as well as other required patient management activities. This time is exclusive of all separately billable procedures, and teaching time and separate from and in addition to any other critical care service time. Resident Activity Tracking Resident Involvement: Resident Care Provided Care Provided: Adult [facility] Medicine (1) Altered mental status Altered mental status type: unspecified Qualified Code(s): R41.82 - Altered mental status, unspecified
[2020-01-19 08:16] LABS: BUN Creatinine Ratio 13.8 (10-20); Calcium 7.9 mg/dl (8.5-10.1); Creatinine Clr Calc Pharmacy 159.2 ml/min; Est GFR (African American) 147.9; Est GFR (Non-African American) 127.6; Potassium 3.1 mmol/L (3.5-5.1)
[2020-01-19] MEDS: FAMOTIDINE 20 MG in SYRINGE 3 ML IV SCH (08:39)
[2020-01-19 08:48] LABS: Magnesium 1.7 mg/dl (1.8-2.4); Phosphorus 1.9 mg/dl (2.5-4.9)
[2020-01-19] MEDS ORDERED: POTASSIUM CHLORIDE 20 MEQ TABCR PO ONE (08:52)
[2020-01-19] MEDS: POT PHOSPHATE MONOBASIC W/ SOD TAB PO SCH ×4 (09:24→21:37)
--- NOTE | 2020-01-19 10:50 | Nephrology Consultation ---
Date of Consultation January 19, 2020 Assessment & Plan (1) Acute hyponatremia: -- Severe hyponatremia with concerning symptoms -- Acute on chronic based on prior labs -- Primary goal will be to correct 6-8 mmol/L over the next 24 hours while ideally avoiding a rate of correction > 0.5 mmol/L/hr -- Nic is euvolemic on exam -- Clinical history is suggestive of polydipsia and thiazide diuretic use -- Certainly laboratory findings also support some degree of malnutrition -- I believe the urine osmolality this AM is reflective of DDAVP given overnight -- Without the continued administration of DDAVP, Nic is at risk of rapid auto-correction (based on urine osmolality from admission) -- Repeat serum sodium is pending at this time -- Appropriate electrolyte replacement has been provided to help normalize serum potassium as well as standing K phos for hypophosphatemia -- Repeat serum sodium + potassium are pending at this time -- Until urine osmolality lowers, and without additional sodium replacement, oral potassium is the only replacement for dysnatremia at this time -- Monitor serum sodium + potassium q 4 hours -- Check magnesium and potassium twice daily -- Document strict I/O's -- Repeat urine osmolality early this afternoon -- Additional recommendations once follow up labs are available for review (2) HTN (hypertension): -- BP and volume status are acceptable -- Hold HCTZ (3) Hypophosphatasia: -- Remains on oral replacement -- Please monitor at least q 12 hours and replace aggressively (4) Altered mental status: -- CT reviewed: no significant evidence of cerebral edema History of Present Illness Reason for Consultation: Hyponatremia Requesting Physician: Estella Walsh MD Attending Physician: Estella Walsh MD History of Present Illness [facility]. [facility] is a 39-year-old male seen the ICU for consultation regarding acute on chronic hyponatremia. Nic was intubated and sedated at the time of my assessment. Medical history was obtained by review of the medical record, discussion with the ICU team and staff from the [facility]. Nic is an inmate at [facility]. He has been in cell holding due to concerns for persistent substance abuse including possible synthetic marijuana. He is maintained on a combination of medications for hypertension and IBS including HCTZ and Bentyl. Medical history is also notable for BPH and dyslipidemia. Home medications include tamsulosin and atorvastatin. Nic presented to the ED at [facility] yesterday with agitation and severe mental status changes. He has been hemodynamically stable and afebrile. He was combative in the ER. Ketamine was administered and Nic has been intubated and mechanically ventilated. He is oxygenating well. He remains on a propofol gtt. Davis catheter has drained a large amount of urine. Initially laboratory studies demonstrated severe hyponatremia with a serum sodium of 117 mmol/L. This was associated with notable hypokalemia (2.8 mmol/L), hypomagnesemia, and hypophosphatemia. Urine osmolality was found to be low at 157. Electrolyte replacement has been provided. Nic was provided with 1 L of NSS in the ER. Serum sodium increased to 123 mmol/L overnight. DDVAP was provided. Serum sodium is now 119 mmol/L this AM. No additional DDAVP had been provided since yesterday evening. Urine osmolality this AM was 792. Serum sodium was known to be 128 mmol/L in September. Allergies Allergy/AdvReac Type Severity Reaction Status Date / Time No Known Allergies Allergy Unverified 01/18/20 15:01 Home Medications Home Medications Medication Instructions Recorded Confirmed Type atorvastatin 10 mg PO DAILY 01/18/20 01/18/20 History cetirizine 10 mg PO DAILY 01/18/20 01/18/20 History dicyclomine 20 mg PO QID PRN 01/18/20 01/18/20 History hydrochlorothiazide 12.5 mg PO DAILY 01/18/20 01/18/20 History simethicone 125 mg PO QID PRN 01/18/20 01/18/20 History tamsulosin 0.8 mg PO DAILY 01/18/20 01/18/20 History Patient History Medical History BPH (benign prostatic hyperplasia) Dyslipidemia HTN (hypertension) Family History Other Family history unobtainable Social History Communication Ability: Unable Communication Ability Comment: pt intubated Current Living Situation: Other Current Living Situation Comment: [facility] Smoking Status: Unknown if ever smoked Hx Alcohol Use: No Review of Systems Review of Systems: Unobtainable due to endotracheal tube Physical Exam Constitutional: well developed; no acute distress, not malnourished and not edematous Eyes: + anicteric sclerae; no conjunctival abnormality ENMT: ETT Neck: normal visual inspection and trachea midline Respiratory: normal respiratory effort Auscultation: lungs clear to auscultation bilaterally Cardiovascular: Rate/Rhythm: regular rate Heart Sounds: normal S1 and normal S2 Vessels: no JVD Extremities: no edema Gastrointestinal (Abdomen): Percussion/Palpation: abdomen soft; abdomen nontender Musculoskeletal: Extremities: no cyanosis and no clubbing Skin: normal turgor; no rashes Neurologic: Motor/Sensory: no tremor and no asterixis sedated Psychiatric: sedated Genitourinary: Davis draining dark yellow urine Results & Data Vital Signs (Past 12 Hours) Vital Signs Temp Pulse Resp BP Pulse Ox 01/19/20 07:41 83 14 99 01/19/20 06:21 80 114/75 100 01/19/20 05:51 80 98/61 L 97 01/19/20 05:22 14 01/19/20 05:21 80 91/63 L 98 01/19/20 04:51 37.0 C 77 102/62 100 01/19/20 04:21 80 88/58 L 98 01/19/20 03:51 82 92/55 L 97 01/19/20 03:21 81 93/59 L 98 01/19/20 02:51 83 93/59 L 96 01/19/20 02:25 83 14 97 01/19/20 02:21 82 97/56 L 98 01/19/20 01:51 88 120/75 90 01/19/20 01:21 80 111/68 100 01/19/20 00:50 77 102/68 100 01/19/20 00:20 78 89/57 L 98 01/18/20 23:53 83 01/18/20 23:51 81 95/55 L 99 01/18/20 23:20 37.8 C H 82 109/68 100 01/18/20 22:50 85 105/68 100 PG Care Time/CCT Total # of Minutes Spent Total Time Spent with Patient: Total time spent is greater than 50% in coordination of care (as documented) at patient's floor/unit and/or counseling patient: Coding Level of Care Code 97713 Inpt Consult Level 5 Diagnoses Acute hyponatremia E87.1 HTN (hypertension) I10 Hypophosphatasia E83.39 Altered mental status R41.82 Altered mental status type: unspecified (1) Altered mental status Altered mental status type: unspecified Qualified Code(s): R41.82 - Altered mental status, unspecified
[2020-01-19 12:12] LABS: BUN Creatinine Ratio 13.7 (10-20); Calcium 7.4 mg/dl (8.5-10.1); Creatinine Clr Calc Pharmacy 151.8 ml/min; Est GFR (Non-African American) 125.1; Potassium 2.9 mmol/L (3.5-5.1)
[2020-01-19] MEDS ORDERED: POTASSIUM CHLORIDE 20 MEQ/15 ML UDC PO ONE (13:00)
[2020-01-19] MEDS ORDERED: STERILE IV SCH ×2 (13:45)
[2020-01-19] MEDS ORDERED: SOD CHLOR IV SCH ×2 (13:45)
[2020-01-19] MEDS ORDERED: WATER IV SCH ×2 (13:45)
--- NOTE | 2020-01-19 14:10 | Hospitalist Progress Note ---
Date of Service January 19, 2020 Assessment & Plan (1) Acute hyponatremia: Admitted with hyponatremia, possible acute on chronic? Appreciate input from nephrology: Recommend slow correction 6-8 mmol/L over next 24 hours 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, unknown drug o verdose/abuse Patient was treated with DDAVP, and by nephrology Continue to monitor BMP every 4 hours close monitoring of serum calcium and electrolytes (2) Altered mental status: -Patient presented from [facility] after he was found to have altered mental status and combative behavior In the ED, patient received Versed and 2 doses of ketamine and continued to be combative Was intubated for airway protection -UDS negative; concern for synthetic marijuana Patient remains critically ill, appreciate input from critical care team CT head noncontrast: No acute change noted (3) Combative behavior: As outlined above On propofol sedation while on vent (4) HTN (hypertension): Was on HCTZ prior, possible cause of severe hyponatremia? Diuretics has been kept on hold Given patient's presentation, HCTZ will be discontinued when patient is discharged (5) Dyslipidemia: (6) DVT prophylaxis: -SQ Lovenox CODE STATUS: Full code Admission and Anticipated Discharge Date Admission Date: January 18, 2020 Subjective Patient remains intubated Unresponsive Review of Systems Review of Systems: Unobtainable due to endotracheal tube and Unobtainable due to reduced consciousness (Sedated on propofol on ventilator) Physical Exam Constitutional: + ill appearing Intubated/sedated ENMT: ET tube present Respiratory: Auscultation: lungs clear to auscultation bilaterally Cardiovascular: Rate/Rhythm: regular rate and regular rhythm Extremities: no edema Gastrointestinal (Abdomen): Inspection/Auscultation: normal bowel sounds Percussion/Palpation: abdomen soft Neurologic: Unresponsive on vent Results & Data ([place]) Vital Signs (Past 12 Hours) Vital Signs Temp Pulse Resp BP Pulse Ox 01/19/20 13:44 74 10 L 100 01/19/20 13:00 77 98 01/19/20 12:51 75 93/63 L 98 01/19/20 12:21 83 93/64 L 98 01/19/20 12:00 80 98 01/19/20 11:51 78 101/69 99 01/19/20 11:21 75 99/74 L 100 01/19/20 11:00 79 99 01/19/20 10:58 78 10 L 98 01/19/20 10:51 83 97/63 L 98 01/19/20 10:30 82 99 01/19/20 10:21 81 102/65 98 01/19/20 10:00 77 99 01/19/20 09:51 75 102/70 99 01/19/20 09:30 76 99 01/19/20 09:21 75 99/70 L 100 01/19/20 09:00 77 99 01/19/20 08:51 78 100/67 99 01/19/20 08:30 83 98 01/19/20 08:21 82 93/61 L 98 01/19/20 08:00 37.1 C 82 98 01/19/20 07:51 84 97/64 L 98 01/19/20 07:41 83 14 99 01/19/20 07:30 85 96 01/19/20 07:21 81 96/68 L 97 01/19/20 07:00 84 97 01/19/20 06:21 80 114/75 100 01/19/20 05:51 80 98/61 L 97 01/19/20 05:22 14 01/19/20 05:21 80 91/63 L 98 01/19/20 04:51 37.0 C 77 102/62 100 01/19/20 04:21 80 88/58 L 98 01/19/20 03:51 82 92/55 L 97 01/19/20 03:21 81 93/59 L 98 01/19/20 02:51 83 93/59 L 96 01/19/20 02:25 83 14 97 01/19/20 02:21 82 97/56 L 98 (1) Altered mental status Altered mental status type: unspecified Qualified Code(s): R41.82 - Altered mental status, unspecified
[2020-01-19 15:49] LABS: BUN Creatinine Ratio 12.1 (10-20); Blood Urea Nitrogen 7 mg/dl (7-18); Calcium 7.3 mg/dl (8.5-10.1); Carbon Dioxide 26 mmol/L (21-32); Chloride 85 mmol/L (98-107); Creatinine Clr Calc Pharmacy 176.6 ml/min; Est GFR (African American) > 150.0; Est GFR (Non-African American) 133.1; Glucose 101 mg/dl (70-99); Magnesium 1.9 mg/dl (1.8-2.4); Phosphorus 2.8 mg/dl (2.5-4.9); Potassium 3.1 mmol/L (3.5-5.1); Sodium 120 mmol/L (136-145)
[2020-01-19 19:39] LABS: BUN Creatinine Ratio 8.7 (10-20); Calcium 7.3 mg/dl (8.5-10.1); Creatinine Clr Calc Pharmacy 147.2 ml/min; Est GFR (African American) 143.2; Est GFR (Non-African American) 123.5; Potassium 3.9 mmol/L (3.5-5.1)
[2020-01-19 23:35] LABS: BUN Creatinine Ratio 7.3 (10-20); Calcium 7.7 mg/dl (8.5-10.1); Creatinine Clr Calc Pharmacy 140.8 ml/min; Est GFR (African American) 140.6; Est GFR (Non-African American) 121.3; Potassium 3.9 mmol/L (3.5-5.1)
[2020-01-19] MEDS ORDERED: TUBE FEEDING WATER FLUSH GT ONE (23:58)
[2020-01-20] MEDS ORDERED: DEXTROSE 5% 1,000 ML IV SCH (00:15)
[2020-01-20] MEDS ORDERED: DEXTROSE 5% 250 ML IV SCH (00:28)
[2020-01-20] MEDS: propofoL 1,000 MG/100 ML VIAL IV SCH ×2 (00:45→04:18)
[2020-01-20] MEDS: MIDAZOLAM HCL 1 MG/ML 2ML VIAL IV PRN ×2 (02:07→05:53)
[2020-01-20 03:26] LABS: Basophils # (auto) 0.01 K/uL (0-0.2); Basophils % (auto) 0.1 %; Eosinophils # (auto) 0.08 K/uL (0-0.5); Eosinophils % (auto) 0.9 %; Immature Granulocytes # (auto) 0.01 K/uL (0.00-0.02); Immature Granulocytes % (auto) 0.1 %; Lymphocytes # (auto) 1.34 K/uL (1.2-3.4); Lymphocytes % (auto) 15.8 %; Mean Corpuscular Hgb Conc 36.6 g/dL (32-36); Mean Corpuscular Volume 87.4 fL (80-100); Mean Platelet Volume 10.6 fL (7.4-10.4); Monocytes # (auto) 1.22 K/uL (0.11-0.59); Monocytes % (auto) 14.4 %; Neutrophils # (auto) 5.83 K/uL (1.4-6.5); Neutrophils % (auto) 68.7 %; Platelet Count 128 K/uL (130-400); RDW Coefficient of Variation 12.2 % (11.5-14.5); RDW Standard Deviation 38.8 fL (36.4-46.3); Red Blood Count 4.69 M/uL (4.7-6.1); White Blood Count 8.49 K/uL (4.8-10.8)
[2020-01-20 03:46] LABS: BUN Creatinine Ratio 7.9 (10-20); Calcium 7.7 mg/dl (8.5-10.1); Creatinine Clr Calc Pharmacy 156.7 ml/min; Est GFR (African American) 146.9; Est GFR (Non-African American) 126.7; Phosphorus 2.8 mg/dl (2.5-4.9); Potassium 3.5 mmol/L (3.5-5.1)
[2020-01-20] MEDS ORDERED: DEXTROSE 5% 500 ML IV SCH (04:00)
[2020-01-20] MEDS: TUBE FEEDING WATER FLUSH GT SCH ×6 (04:18→13:10)
--- NOTE | 2020-01-20 06:54 | Critical Care Progress Note ---
Date of Service January 20, 2020 Assessment & Plan (1) Altered mental status: Nic Ferrell is a 39 y/o M who presents from [facility]. The patient was found just prior to arrival in the ED by his cellmate unresponsive and confused and combative. NEURO: - CAM ICU: negative - Versed 1mg Q2h PRN for continued agitation - ?Psychogenic polydipsia verse synthetic drug use verse medication overdose - conversation with Janet from [facility], cell search did not demonstrate increased use of HCTZ or synthetic drugs, did demonstrate 3 fully empty packs of Bentyl (increased usage, over unknown timeframe) - now that patient is stable, following extubation, appropriate for downgrade from ICU CARDIAC/VASCULAR: - no significant medical history of cardiovascular disease RESPIRATORY: - maintaining sats >92% on room air - CXR without evidence of active disease GI/NUTRITION: - Clear liquids - prophylaxis: Pepcid RENAL/LYTES: - sodium on admission 117, last check at 0720 Na 120, Mg 1.9, K 3.1 - patient received 1 dose of DDAVP overnight - serum osmolality 253 on admission; today urine osm 757 - previously had Na of 128 on 09/24/2019 - continue to trend BMPs : - Davis in place - patient does take tamsulosin - continue to monitor strict I/Os ENDO: - no history of hypo/hyperthyroidism, no T2DM HEME: - H&H stable ID: - unlikely to be infectious source - white count initially elevated on admission to 17, but downtrended to 10.8 LINES/IV ACCESS: - peripheral IVs DVT PROPHYLAXIS: - SCDs Admission and Anticipated Discharge Date Admission Date: January 18, 2020 Supervising Physician Co-Signing Physician Notes Dr. Corral was resident physician during care of patient. I separately evaluated patient for breen portions of the history and the exam. I was present during the critical portion of medical decision making, and I discussed the case with the resident. I generally agree with the findings and plan. Patient was discussed on multidisciplinary rounds. Patient was extubated this morning and observed for several hours, able to follow complex commands. His sodium has significantly improved, transitioning care to nephrology and the hospitalist, he is stable for downgrade out of the ICU. Subjective Patient was successfully switched to CPAP settings overnight, before being successfully extubated after complete withdrawal of sedation. Patient started to overcorrect sodium last night and required one dose of DDAVP to slow the progress. Patient has no memory of the events of the last several days prior to being brought to the hospital. Review of Systems Review of Systems: Unobtainable due to endotracheal tube Physical Exam Constitutional: WD/WN, vitals as above Eyes: PERRL and reactive pupils; no conjunctival abnormality and no scleral abnormality ENMT: external ear and nose normal, oropharynx normal Neck: normal visual inspection Respiratory: no respiratory distress (intubated) and no cough Auscultation: + crackles; no rales, no rhonchi and no wheezes Cardiovascular: Rate/Rhythm: regular rate and regular rhythm Heart Sounds: normal S1 and normal S2; no gallop, no murmur and no cardiac rub Vessels: no JVD Extremities: no pedal edema Gastrointestinal (Abdomen): Inspection/Auscultation: abdomen normal to inspection and normal bowel sounds; abdomen not distended Percussion/Palpation: abdomen soft; no guarding Skin: no rashes, warm and dry Neurologic: patellar DTR's 2+ bilat, sensation intact Psychiatric: A+Ox3, euthymic affect Lymphatic: no cervical or axillary lymphadenopathy Results & Data ([facility]) Vital Signs (Past 12 Hours) Vital Signs Temp Pulse Resp BP Pulse Ox 01/20/20 06:24 93 H 13 98 01/20/20 06:00 93 H 99 01/20/20 05:52 93 H 98/74 L 100 01/20/20 05:45 79 96 01/20/20 05:30 81 95 01/20/20 05:22 83 91/59 L 95 01/20/20 05:15 85 95 01/20/20 04:52 37.7 C H 91 H 95/60 L 94 01/20/20 04:22 98 H 103/68 97 01/20/20 04:00 93 H 99 01/20/20 03:51 37.4 C 101 H 115/87 01/20/20 03:21 89 106/66 99 01/20/20 03:00 86 99 01/20/20 02:51 87 99/69 L 100 01/20/20 02:38 79 10 L 100 01/20/20 02:30 85 100 01/20/20 02:21 84 109/73 100 01/20/20 02:00 80 100 01/20/20 01:51 85 92/59 L 100 01/20/20 01:30 88 100 01/20/20 01:21 94 H 94/65 L 100 01/20/20 00:51 84 99/61 L 100 01/20/20 00:30 88 99 01/20/20 00:21 88 102/56 L 100 01/20/20 00:15 89 100 01/20/20 00:05 86 10 L 100 01/20/20 00:00 80 100 01/19/20 23:51 37.4 C 82 106/69 100 01/19/20 23:21 81 106/68 100 01/19/20 22:52 88 103/73 94 01/19/20 22:21 82 94/52 L 98 01/19/20 21:51 94 H 84/53 L 97 01/19/20 21:21 88 94/56 L 98 01/19/20 20:51 88 98/53 L 98 01/19/20 20:21 85 105/60 100 01/19/20 19:51 37.3 C 85 99/57 L 97 01/19/20 19:50 84 10 L 97 01/19/20 19:21 89 98/64 L 100 01/19/20 19:00 85 99 Laboratory Results 01/20/20 01/20/20 01/19/20 Range/Units 02:48 02:48 23:03 WBC 8.49 (4.8-10.8) K/uL RBC 4.69 L (4.7-6.1) M/uL Hgb 15.0 (14.0-18.0) g/dL Hct 41.0 L (42-52) % MCV 87.4 (80-100) fL MCH 32.0 (25-34) pg MCHC 36.6 H (32-36) g/dL RDW Std Deviation 38.8 (36.4-46.3) fL RDW Coeff of Jovanni 12.2 (11.5-14.5) % Plt Count 128 L (130-400) K/uL MPV 10.6 H (7.4-10.4) fL Immature Gran % (Auto) 0.1 % Neut % (Auto) 68.7 % Lymph % (Auto) 15.8 % [place] % (Auto) 14.4 % Eos % (Auto) 0.9 % Baso % (Auto) 0.1 % Immature Gran # (Auto) 0.01 (0.00-0.02) K/uL Neut # (Auto) 5.83 (1.4-6.5) K/uL Lymph # (Auto) 1.34 (1.2-3.4) K/uL [place] # (Auto) 1.22 H (0.11-0.59) K/uL Eos # (Auto) 0.08 (0-0.5) K/uL Baso # (Auto) 0.01 (0-0.2) K/uL Sodium 127 L 127 L (136-145) mmol/L Potassium 3.5 3.9 (3.5-5.1) mmol/L Chloride 94 L 94 L (98-107) mmol/L Carbon Dioxide 26 26 (21-32) mmol/L Anion Gap 7.0 7.0 (3-11) BUN 5 L 5 L (7-18) mg/dl Creatinine 0.62 0.69 (0.6-1.4) mg/dl Est Cr Clr Drug Dosing 156.7 140.8 ml/min Est GFR ( Amer) 146.9 140.6 Est GFR (Non-Af Amer) 126.7 121.3 BUN/Creatinine Ratio 7.9 L 7.3 L (10-20) Glucose 89 85 (70-99) mg/dl POC Glucose (70-99) mg/dl Calcium 7.7 L 7.7 L (8.5-10.1) mg/dl Phosphorus 2.8 (2.5-4.9) mg/dl Magnesium 2.0 (1.8-2.4) mg/dl Urine Osmolality (500-800) mOsm/kg 01/19/20 01/19/20 01/19/20 Range/Units 23:00 19:14 18:18 WBC (4.8-10.8) K/uL RBC (4.7-6.1) M/uL Hgb (14.0-18.0) g/dL Hct (42-52) % MCV (80-100) fL MCH (25-34) pg MCHC (32-36) g/dL RDW Std Deviation (36.4-46.3) fL RDW Coeff of Jovanni (11.5-14.5) % Plt Count (130-400) K/uL MPV (7.4-10.4) fL Immature Gran % (Auto) % Neut % (Auto) % Lymph % (Auto) % [place] % (Auto) % Eos % (Auto) % Baso % (Auto) % Immature Gran # (Auto) (0.00-0.02) K/uL Neut # (Auto) (1.4-6.5) K/uL Lymph # (Auto) (1.2-3.4) K/uL [place] # (Auto) (0.11-0.59) K/uL Eos # (Auto) (0-0.5) K/uL Baso # (Auto) (0-0.2) K/uL Sodium 122 L (136-145) mmol/L Potassium 3.9 D (3.5-5.1) mmol/L Chloride 89 L (98-107) mmol/L Carbon Dioxide 25 (21-32) mmol/L Anion Gap 8.0 (3-11) BUN 6 L (7-18) mg/dl Creatinine 0.66 (0.6-1.4) mg/dl Est Cr Clr Drug Dosing 147.2 ml/min Est GFR ( Amer) 143.2 Est GFR (Non-Af Amer) 123.5 BUN/Creatinine Ratio 8.7 L (10-20) Glucose 90 (70-99) mg/dl POC Glucose 90 (70-99) mg/dl Calcium 7.3 L (8.5-10.1) mg/dl Phosphorus (2.5-4.9) mg/dl Magnesium (1.8-2.4) mg/dl Urine Osmolality 101 L (500-800) mOsm/kg 01/19/20 01/19/20 01/19/20 Range/Units 15:10 15:00 11:16 WBC (4.8-10.8) K/uL RBC (4.7-6.1) M/uL Hgb (14.0-18.0) g/dL Hct (42-52) % MCV (80-100) fL MCH (25-34) pg MCHC (32-36) g/dL RDW Std Deviation (36.4-46.3) fL RDW Coeff of Jovanni (11.5-14.5) % Plt Count (130-400) K/uL MPV (7.4-10.4) fL Immature Gran % (Auto) % Neut % (Auto) % Lymph % (Auto) % [place] % (Auto) % Eos % (Auto) % Baso % (Auto) % Immature Gran # (Auto) (0.00-0.02) K/uL Neut # (Auto) (1.4-6.5) K/uL Lymph # (Auto) (1.2-3.4) K/uL [place] # (Auto) (0.11-0.59) K/uL Eos # (Auto) (0-0.5) K/uL Baso # (Auto) (0-0.2) K/uL Sodium 120 L 119 L* (136-145) mmol/L Potassium 3.1 L 2.9 L (3.5-5.1) mmol/L Chloride 85 L 84 L (98-107) mmol/L Carbon Dioxide 26 27 (21-32) mmol/L Anion Gap 9.0 8.0 (3-11) BUN 7 9 (7-18) mg/dl Creatinine 0.55 L 0.64 (0.6-1.4) mg/dl Est Cr Clr Drug Dosing 176.6 151.8 ml/min Est GFR ( Amer) > 150.0 145.0 Est GFR (Non-Af Amer) 133.1 125.1 BUN/Creatinine Ratio 12.1 13.7 (10-20) Glucose 101 H 91 (70-99) mg/dl POC Glucose (70-99) mg/dl Calcium 7.3 L 7.4 L (8.5-10.1) mg/dl Phosphorus 2.8 (2.5-4.9) mg/dl Magnesium 1.9 (1.8-2.4) mg/dl Urine Osmolality 757 (500-800) mOsm/kg 01/19/20 01/19/20 01/19/20 Range/Units 09:40 07:21 07:21 WBC (4.8-10.8) K/uL RBC (4.7-6.1) M/uL Hgb (14.0-18.0) g/dL Hct (42-52) % MCV (80-100) fL MCH (25-34) pg MCHC (32-36) g/dL RDW Std Deviation (36.4-46.3) fL RDW Coeff of Jovanni (11.5-14.5) % Plt Count (130-400) K/uL MPV (7.4-10.4) fL Immature Gran % (Auto) % Neut % (Auto) % Lymph % (Auto) % [place] % (Auto) % Eos % (Auto) % Baso % (Auto) % Immature Gran # (Auto) (0.00-0.02) K/uL Neut # (Auto) (1.4-6.5) K/uL Lymph # (Auto) (1.2-3.4) K/uL [place] # (Auto) (0.11-0.59) K/uL Eos # (Auto) (0-0.5) K/uL Baso # (Auto) (0-0.2) K/uL Sodium 119 L* (136-145) mmol/L Potassium 3.1 L (3.5-5.1) mmol/L Chloride 84 L (98-107) mmol/L Carbon Dioxide 26 (21-32) mmol/L Anion Gap 9.0 (3-11) BUN 8 (7-18) mg/dl Creatinine 0.61 (0.6-1.4) mg/dl Est Cr Clr Drug Dosing 159.2 ml/min Est GFR ( Amer) 147.9 Est GFR (Non-Af Amer) 127.6 BUN/Creatinine Ratio 13.8 (10-20) Glucose 99 (70-99) mg/dl POC Glucose (70-99) mg/dl Calcium 7.9 L (8.5-10.1) mg/dl Phosphorus Cancelled 1.9 L (2.5-4.9) mg/dl Magnesium Cancelled 1.7 L (1.8-2.4) mg/dl Urine Osmolality 792 (500-800) mOsm/kg Medications Administered Current Inpatient Medications Propofol (Diprivan) 1,000 mg in 100 mls @ 23.31 mls/hr IV .Q4H18M [facility]; Protocol Stop: 01/21/20 15:14 Last Admin: 01/20/20 04:18 Dose: 50 mcg/kg/min, 23.3 mls/hr Documented by: Famotidine 20 mg/ Syringe 5 mls @ 2.5 mls/min IV DAILY MARQUITA Stop: 02/18/20 08:59 Last Admin: 01/19/20 08:39 Dose: 2.5 mls/min Documented by: Dextrose (D5w) 500 mls @ 125 mls/hr IV .Q4H MARQUITA Stop: 01/20/20 07:59 Last Admin: 01/20/20 04:17 Dose: 125 mls/hr Documented by: Midazolam HCl (Versed) 1 mg IV Q2H PRN PRN Reason: agitation/anxiety Stop: 02/17/20 18:14 Last Admin: 01/20/20 05:53 Dose: 1 mg Documented by: Miscellaneous (Icu Protocol For Hyperglycemia) 1 ea N/A PRN PRN; Protocol PRN Reason: Hyperglycemia Protocol Stop: 01/20/20 17:34 Potassium Phosphate (Phospha 250 Neutral [id number] Mg) 2 tab PO QID MARQUITA Stop: 02/18/20 08:59 Last Admin: 01/19/20 21:37 Dose: 2 tab Documented by: Sterile Water (Tube Feeding Water Flush) 50 ea GT Q2H MARQUITA Stop: 02/19/20 03:59 Last Admin: 01/20/20 05:54 Dose: 50 ea Documented by: Resident Activity Tracking Resident Involvement: Resident Care Provided Care Provided: Adult Hospital Medicine (1) Altered mental status Altered mental status type: unspecified Qualified Code(s): R41.82 - Altered mental status, unspecified
--- NOTE | 2020-01-20 07:11 | XRay Report ---
XR chest 1V portable CLINICAL HISTORY: f/u dyspnea COMPARISON STUDY: 01/18/2020 FINDINGS: Endotracheal tube 5 cm above the manish. Lungs remain clear. Nasogastric tube is in the gas tric fundus. Diaphragms are smooth. IMPRESSION: 1. Endotracheal tube 5 cm above the manish. 2. Lungs remain clear. 3. Nasogastric tube within the gastric fundus. ACT 112: Negative or not required by law. The above report was generated using voice recognition software. It may contain grammatical, syntax or spelling errors. Electronically signed by: Luis Cordova M.D. 01/20/2020 7:09 AM
[2020-01-20 07:54] LABS: BUN Creatinine Ratio 6.3 (10-20); Calcium 7.8 mg/dl (8.5-10.1); Creatinine Clr Calc Pharmacy 144.4 ml/min; Est GFR (African American) 144.1; Est GFR (Non-African American) 124.3; Potassium 3.2 mmol/L (3.5-5.1)
[2020-01-20] MEDS ORDERED: POTASSIUM CHLORIDE 20 MEQ TABCR PO STA (08:46)
--- NOTE | 2020-01-20 09:05 | Nephrology Progress Note ---
Date of Service January 20, 2020 Assessment & Plan (1) Acute hyponatremia: -- Severe hyponatremia with concerning symptoms upon presentation attributed to polydipsia and thiazide diuretic use. -- Acute on chronic based on prior labs. -- Auto-correcting augmented by free water. -- Remains euvolemic on exam. -- Appropriate electrolyte replacement has been provided for hypokalemia and hypophosphatemia: additional 80 mEq KCl ordered this AM. -- Repeat serum sodium + potassium Q 4 hours. -- Monitor PO4 and magnesium at least daily. -- Check Uosm at least daily. -- If free water fails to meet correction needs, I would suggest additional DDAVP and restarting saline infusion at a rate to be determined. -- Please continue to document strict I/O's. -- Additional recommendations once follow up labs are available for review. (2) HTN (hypertension): -- BP and volume status are acceptable. -- Hold HCTZ. (3) Hypophosphatasia: -- Monitor daily at this time. (4) Altered mental status: -- CT reviewed: no significant evidence of cerebral edema. -- Extubated this AM. Subjective Extubated. Continues to receive free water via NGT. Auto-correction started overnight. At that time, hypertonic saline was started and free water provided. Continues to have brisk urine output. Review of Systems Review of Systems: All systems reviewed & are unremarkable except as noted in HPI & below Physical Exam Constitutional: well developed; no acute distress, not malnourished and not edematous Eyes: + anicteric sclerae; no conjunctival abnormality Neck: normal visual inspection and trachea midline Respiratory: normal respiratory effort Auscultation: lungs clear to auscultation bilaterally Cardiovascular: Rate/Rhythm: regular rate Heart Sounds: normal S1 and normal S2 Vessels: no JVD Extremities: no edema Gastrointestinal (Abdomen): Percussion/Palpation: abdomen soft; abdomen nontender Musculoskeletal: Extremities: no cyanosis and no clubbing Skin: normal turgor; no rashes Neurologic: Motor/Sensory: no tremor and no asterixis Results & Data Vital Signs (Past 12 Hours) Vital Signs Temp Pulse Resp BP Pulse Ox 01/20/20 07:09 91 H 12 95 01/20/20 06:24 93 H 13 98 01/20/20 06:00 93 H 99 01/20/20 05:52 93 H 98/74 L 100 01/20/20 05:45 79 96 01/20/20 05:30 81 95 01/20/20 05:22 83 91/59 L 95 01/20/20 05:15 85 95 01/20/20 04:52 37.7 C H 91 H 95/60 L 94 01/20/20 04:22 98 H 103/68 97 01/20/20 04:00 93 H 99 01/20/20 03:51 37.4 C 101 H 115/87 01/20/20 03:21 89 106/66 99 01/20/20 03:00 86 99 01/20/20 02:51 87 99/69 L 100 01/20/20 02:38 79 10 L 100 01/20/20 02:30 85 100 01/20/20 02:21 84 109/73 100 01/20/20 02:00 80 100 01/20/20 01:51 85 92/59 L 100 01/20/20 01:30 88 100 01/20/20 01:21 94 H 94/65 L 100 01/20/20 00:51 84 99/61 L 100 01/20/20 00:30 88 99 01/20/20 00:21 88 102/56 L 100 01/20/20 00:15 89 100 01/20/20 00:05 86 10 L 100 01/20/20 00:00 80 100 01/19/20 23:51 37.4 C 82 106/69 100 01/19/20 23:21 81 106/68 100 01/19/20 22:52 88 103/73 94 01/19/20 22:21 82 94/52 L 98 01/19/20 21:51 94 H 84/53 L 97 01/19/20 21:21 88 94/56 L 98 Laboratory Results Laboratory Results - last 24 hr 01/19/20 01/19/20 01/19/20 09:40 11:16 15:00 WBC RBC Hgb Hct MCV MCH MCHC RDW Std Deviation RDW Coeff of Jovanni Plt Count MPV Immature Gran % (Auto) Neut % (Auto) Lymph % (Auto) [place] % (Auto) Eos % (Auto) Baso % (Auto) Immature Gran # (Auto) Neut # (Auto) Lymph # (Auto) [place] # (Auto) Eos # (Auto) Baso # (Auto) Sodium 119 L* Potassium 2.9 L Chloride 84 L Carbon Dioxide 27 Anion Gap 8.0 BUN 9 Creatinine 0.64 Est Cr Clr Drug Dosing 151.8 Est GFR ( Amer) 145.0 Est GFR (Non-Af Amer) 125.1 BUN/Creatinine Ratio 13.7 Glucose 91 POC Glucose Calcium 7.4 L Phosphorus Magnesium Urine Osmolality 792 757 01/19/20 01/19/20 01/19/20 15:10 18:18 19:14 WBC RBC Hgb Hct MCV MCH MCHC RDW Std Deviation RDW Coeff of Jovanni Plt Count MPV Immature Gran % (Auto) Neut % (Auto) Lymph % (Auto) [place] % (Auto) Eos % (Auto) Baso % (Auto) Immature Gran # (Auto) Neut # (Auto) Lymph # (Auto) [place] # (Auto) Eos # (Auto) Baso # (Auto) Sodium 120 L 122 L Potassium 3.1 L 3.9 D Chloride 85 L 89 L Carbon Dioxide 26 25 Anion Gap 9.0 8.0 BUN 7 6 L Creatinine 0.55 L 0.66 Est Cr Clr Drug Dosing 176.6 147.2 Est GFR ( Amer) > 150.0 143.2 Est GFR (Non-Af Amer) 133.1 123.5 BUN/Creatinine Ratio 12.1 8.7 L Glucose 101 H 90 POC Glucose 90 Calcium 7.3 L 7.3 L Phosphorus 2.8 Magnesium 1.9 Urine Osmolality 01/19/20 01/19/20 01/20/20 23:00 23:03 02:48 WBC 8.49 RBC 4.69 L Hgb 15.0 Hct 41.0 L MCV 87.4 MCH 32.0 MCHC 36.6 H RDW Std Deviation 38.8 RDW Coeff of Jovanni 12.2 Plt Count 128 L MPV 10.6 H Immature Gran % (Auto) 0.1 Neut % (Auto) 68.7 Lymph % (Auto) 15.8 [place] % (Auto) 14.4 Eos % (Auto) 0.9 Baso % (Auto) 0.1 Immature Gran # (Auto) 0.01 Neut # (Auto) 5.83 Lymph # (Auto) 1.34 [place] # (Auto) 1.22 H Eos # (Auto) 0.08 Baso # (Auto) 0.01 Sodium 127 L Potassium 3.9 Chloride 94 L Carbon Dioxide 26 Anion Gap 7.0 BUN 5 L Creatinine 0.69 Est Cr Clr Drug Dosing 140.8 Est GFR ( Amer) 140.6 Est GFR (Non-Af Amer) 121.3 BUN/Creatinine Ratio 7.3 L Glucose 85 POC Glucose Calcium 7.7 L Phosphorus Magnesium Urine Osmolality 101 L 01/20/20 01/20/20 02:48 06:58 WBC RBC Hgb Hct MCV MCH MCHC RDW Std Deviation RDW Coeff of Jovanni Plt Count MPV Immature Gran % (Auto) Neut % (Auto) Lymph % (Auto) [place] % (Auto) Eos % (Auto) Baso % (Auto) Immature Gran # (Auto) Neut # (Auto) Lymph # (Auto) [place] # (Auto) Eos # (Auto) Baso # (Auto) Sodium 127 L 126 L Potassium 3.5 3.2 L Chloride 94 L 92 L Carbon Dioxide 26 29 Anion Gap 7.0 6.0 BUN 5 L 4 L Creatinine 0.62 0.65 Est Cr Clr Drug Dosing 156.7 144.4 Est GFR ( Amer) 146.9 144.1 Est GFR (Non-Af Amer) 126.7 124.3 BUN/Creatinine Ratio 7.9 L 6.3 L Glucose 89 96 POC Glucose Calcium 7.7 L 7.8 L Phosphorus 2.8 Magnesium 2.0 Urine Osmolality PG Care Time/CCT Total # of Minutes Spent Total Time Spent with Patient: Total time spent is greater than 50% in coordination of care (as documented) at patient's floor/unit and/or counseling patient: Coding Level of Care Code 21219 Subseq Hosp Care Lvl 3 Diagnoses Acute hyponatremia E87.1 HTN (hypertension) I10 Hypophosphatasia E83.39 Altered mental status R41.82 Altered mental status type: unspecified (1) Altered mental status Altered mental status type: unspecified Qualified Code(s): R41.82 - Altered mental status, unspecified
[2020-01-20] MEDS: FAMOTIDINE 20 MG in SYRINGE 3 ML IV SCH (10:38)
[2020-01-20] MEDS: POTASSIUM CHLORIDE 20 MEQ/15 ML UDC PO SCH ×2 (10:39→13:09)
--- NOTE | 2020-01-20 11:23 | Hospitalist Progress Note ---
Date of Service January 20, 2020 Assessment & Plan (1) Acute hyponatremia: Admitted with hyponatremia, possible acute on chronic? 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, unknown drug overdose/abuse Appreciate input from nephrology: Slow correction of sodium 6-8 mmol/L over next 24 hours Sodium level 127 today, (2) Altered mental status: -Patient presented from [facility] after he was found to have altered mental status and combative behavior In the ED, patient received Versed and 2 doses of ketamine and continued to be combative Was intubated for airway protection -UDS negative; concern for synthetic marijuana -not detectable in tox screening CT head noncontrast: No acute change noted Patient is extubated earlier, awake and alert Stable to be transferred out of ICU (3) Combative behavior: Possible secondary to drug abuse? Extubated today, Awake and alert oriented, no confusion or agitation noted (4) HTN (hypertension): Was on HCTZ prior, possible cause of severe hyponatremia? Diuretics discontinued Given patient's presentation, -high risk for recurrent hyponatremia HCTZ will not be resumed when patient is discharged (5) Dyslipidemia: -Statin (6) DVT prophylaxis: -SQ Lovenox CODE STATUS: Full code Admission and Anticipated Discharge Date Admission Date: January 18, 2020 Subjective Patient extubated, Awake and alert, no respiratory distress noted remains on nasal cannula No complaint of headache, no visual symptoms Speech fluent, no confusion or agitation noted Stable to be transferred out of ICU Review of Systems Review of Systems: All systems reviewed & are unremarkable except as noted in HPI & below Constitutional: no fever, no chills, no fatigue, no weakness and no anorexia Respiratory: no cough, no dyspnea, no dyspnea on exertion and no wheezing Cardiovascular: no chest pain, no dyspnea, no orthopnea, no palpitations, no lightheadedness, no syncope and no edema Gastrointestinal: no abdominal pain, no nausea and no vomiting Musculoskeletal: no back pain, no neck pain and no joint pain Neurologic: no dizziness, no headache(s), no abnormal speech and no confusion Physical Exam Constitutional: WD/WN, vitals as above + ill appearing; no acute distress Eyes: PERRL, conjunctivae normal, anicteric sclerae ENMT: NG tube present Neck: trachea midline, no thyromegaly Respiratory: Auscultation: lungs clear to auscultation bilaterally Cardiovascular: Rate/Rhythm: regular rate and regular rhythm Extremities: no edema Gastrointestinal (Abdomen): Inspection/Auscultation: normal bowel sounds Percussion/Palpation: abdomen soft Musculoskeletal: no cyanosis or clubbing, extremities motor strength 5/5 Neurologic: PERRL, EOMI, accommodation nl, no face palsy, no dysarthria Psychiatric: A+Ox3, euthymic affect Results & Data ([facility]) Vital Signs (Past 12 Hours) Vital Signs Temp Pulse Resp BP Pulse Ox 01/20/20 09:52 88 13 103/65 97 01/20/20 09:22 98 H 13 109/69 98 01/20/20 09:08 97 H 18 104/57 L 99 01/20/20 08:52 104 H 12 104/57 L 99 01/20/20 08:22 100 H 16 101/59 L 100 01/20/20 08:00 91 H 01/20/20 07:52 109 H 16 136/94 100 01/20/20 07:22 105 H 127/103 H 98 01/20/20 07:15 37.8 C H 100 H 97 01/20/20 07:09 91 H 12 95 01/20/20 06:52 87 111/66 95 01/20/20 06:24 93 H 13 98 01/20/20 06:00 93 H 99 01/20/20 05:52 93 H 98/74 L 100 01/20/20 05:45 79 96 01/20/20 05:30 81 95 01/20/20 05:22 83 91/59 L 95 01/20/20 05:15 85 95 01/20/20 04:52 37.7 C H 91 H 95/60 L 94 01/20/20 04:22 98 H 103/68 97 01/20/20 04:00 93 H 99 01/20/20 03:51 37.4 C 101 H 115/87 01/20/20 03:21 89 106/66 99 01/20/20 03:00 86 99 01/20/20 02:51 87 99/69 L 100 01/20/20 02:38 79 10 L 100 01/20/20 02:30 85 100 01/20/20 02:21 84 109/73 100 01/20/20 02:00 80 100 03/20/20 01:51 85 92/59 L 100 01/20/20 01:30 88 100 01/20/20 01:21 94 H 94/65 L 100 01/20/20 00:51 84 99/61 L 100 01/20/20 00:30 88 99 01/20/20 00:21 88 102/56 L 100 01/20/20 00:15 89 100 01/20/20 00:05 86 10 L 100 01/20/20 00:00 80 100 01/19/20 23:51 37.4 C 82 106/69 100 (1) Altered mental status Altered mental status type: unspecified Qualified Code(s): R41.82 - Altered mental status, unspecified
[2020-01-20 11:29] LABS: BUN Creatinine Ratio 6.8 (10-20); Calcium 8.2 mg/dl (8.5-10.1); Creatinine Clr Calc Pharmacy 151.4 ml/min; Est GFR (African American) 146.9; Est GFR (Non-African American) 126.7; Potassium 3.4 mmol/L (3.5-5.1)
--- NOTE | 2020-01-20 11:32 | XRay Report ---
XR KUB/Abdomen 1 view CLINICAL HISTORY: NGT placement tube position COMPARISON STUDY: No previous studies for comparison. FINDINGS: Nasogastric tube present within the gastric fundus. Mild nonobstructive ileus. IMPRESSION: Nasogastric tube within the gastric fundus. ACT 112: Negative or not required by law. The above report was generated using voice recognition software. It may contain grammatical, syntax or spelling errors. Electronically signed by: Luis Cordova M.D. 01/20/2020 11:31 AM
[2020-01-20] MEDS: DEXTROSE 5% 1,000 ML IV SCH ×2 (12:42→22:24)
[2020-01-20 15:50] LABS: BUN Creatinine Ratio 4.2 (10-20); Calcium 8.8 mg/dl (8.5-10.1); Creatinine Clr Calc Pharmacy 109.1 ml/min; Est GFR (African American) 128.4; Est GFR (Non-African American) 110.8
--- NOTE | 2020-01-20 19:00 | Billing Data ---
Date of Service January 20, 2020 Coding Level of Care Code 24381 Subseq Hosp Care Lvl 3
--- NOTE | 2020-01-20 19:00 | Billing Data ---
Date of Service January 19, 2020 Coding Level of Care Code Critical Care 1st 30-74 mins Time Spent (min) 40
[2020-01-20 21:43] LABS: BUN Creatinine Ratio 5.9 (10-20); Calcium 8.4 mg/dl (8.5-10.1); Creatinine Clr Calc Pharmacy 104.3 ml/min; Est GFR (Non-African American) 108.7
[2020-01-21 01:57] LABS: iSTAT Allen Test Pass; iSTAT Art Bld Gas pCO2 Correct 36 mmHg (35-46); iSTAT Art Bld Gas pH Corrected 7.443 (7.35-7.45); iSTAT Arterial Blood Gas HCO3 25 meg/L (19-24); iSTAT Arterial Blood Gas pCO2 35 mmHg (35-46); iSTAT Arterial Blood Gas pH 7.45 (7.35-7.45); iSTAT Arterial Blood Gas pO2 124 mmHg (80-95); iSTAT Arterial Blood Gas pO2 C 128; iSTAT Carbon Dioxide 26 mmol/L (24-31); iSTAT Hematocrit 40 % (42-52); iSTAT Hemoglobin 13.6 g/dl (14.0-18.0); iSTAT Potassium 3.3 mmol/L (3.3-5.0); iSTAT Site L Radial; iSTAT Sodium 124 mmol/L (135-144)
[2020-01-21 06:53] LABS: Albumin Level 3.5 gm/dl (3.4-5.0); BUN Creatinine Ratio 10.8 (10-20); Calcium 8.7 mg/dl (8.5-10.1); Creatinine Clr Calc Pharmacy 155.6 ml/min; Est GFR (Non-African American) 125.1; Phosphorus 2.7 mg/dl (2.5-4.9); Potassium 3.7 mmol/L (3.5-5.1)
[2020-01-21] MEDS: DEXTROSE 5% 1,000 ML IV SCH ×2 (06:56→16:18)
[2020-01-21] MEDS: FAMOTIDINE 20 MG in SYRINGE 3 ML IV SCH (08:01)
--- NOTE | 2020-01-21 09:48 | Nephrology Progress Note ---
Date of Service January 21, 2020 Assessment & Plan (1) Acute hyponatremia: -- Severe hyponatremia with concerning symptoms upon presentation attributed to polydipsia and thiazide diuretic use. -- Acute on chronic based on prior labs. -- Remains euvolemic on exam. -- Appropriate electrolyte replacement has been provided for hypokalemia and hypophosphatemia. -- Repeat serum sodium + potassium this afternoon. -- Davis may be removed per protocol. -- Continue IV D5W for now pending repeat labs this afternoon. -- Additional recommendations once follow up labs are available for review. (2) HTN (hypertension): -- BP and volume status are acceptable. -- Hold HCTZ. (3) Hypophosphatasia: -- Monitor daily at this time. (4) Altered mental status: -- CT reviewed: no significant evidence of cerebral edema. -- Extubated this AM. Subjective No acute events overnight. Nic feels well this morning. He reported a mild headache yesterday but this has improved. He has some sinus congestion. Appetite is good. Davis is draining clear yellow urine. Nic cannot recall what happened before he came to the hospital. He stated that he was drinking lots of fluids to keep his kidneys healthy. He plans to donate a kidney to his brother in the future. Review of Systems Review of Systems: All systems reviewed & are unremarkable except as noted in HPI & below Physical Exam Constitutional: well developed; no acute distress, not malnourished and not edematous Eyes: + anicteric sclerae; no conjunctival abnormality Neck: normal visual inspection and trachea midline Respiratory: normal respiratory effort Auscultation: lungs clear to auscultation bilaterally Cardiovascular: Rate/Rhythm: regular rate Heart Sounds: normal S1 and normal S2 Vessels: no JVD Extremities: no edema Gastrointestinal (Abdomen): Percussion/Palpation: abdomen soft; abdomen nontender Musculoskeletal: Extremities: no cyanosis and no clubbing Skin: normal turgor; no rashes Neurologic: Motor/Sensory: no tremor and no asterixis Results & Data Vital Signs (Past 12 Hours) Vital Signs Temp Pulse Pulse Resp BP Pulse Ox 01/21/20 07:51 85 01/21/20 07:28 36.9 C 80 18 108/73 98 01/21/20 03:00 36.8 C 79 16 115/73 98 01/21/20 00:00 99 H 01/20/20 22:13 36.7 C 86 16 105/71 99 Laboratory Results Laboratory Results - last 24 hr 01/20/20 01/20/20 01/20/20 06:04 09:15 10:56 POC Hgb 13.6 L POC Hct 40 L Sample Site L Radial POC pH 7.45 POC pCO2 35 POC pO2 124 H POC HCO3 25 H POC Total CO2 26 POC Base Excess 1.0 ABG pH (Temp Correct) 7.443 ABG pCO2 (Temp Corrct 36 POC ABG pO2 at Pt Temp 128 Skinny Test Pass O2 Delivery Device Ventilator POC O2 Rate 8 Minute Ventilation 5.7 Tidal Volume 500 PEEP 5 POC Sodium 124 L Sodium 129 L POC Potassium 3.3 Potassium 3.4 L Chloride 93 L Carbon Dioxide 27 Anion Gap 9.0 BUN 4 L Creatinine 0.62 Est Cr Clr Drug Dosing 151.4 Est GFR ( Amer) 146.9 Est GFR (Non-Af Amer) 126.7 BUN/Creatinine Ratio 6.8 L Glucose 95 Calcium 8.2 L Phosphorus Albumin Urine Osmolality 89 L 01/20/20 01/20/20 01/21/20 15:04 21:01 05:26 POC Hgb POC Hct Sample Site POC pH POC pCO2 POC pO2 POC HCO3 POC Total CO2 POC Base Excess ABG pH (Temp Correct) ABG pCO2 (Temp Corrct POC ABG pO2 at Pt Temp Skinny Test O2 Delivery Device POC O2 Rate Minute Ventilation Tidal Volume PEEP POC Sodium Sodium 134 L 138 136 POC Potassium Potassium 4.0 D 4.0 3.7 Chloride 101 106 104 Carbon Dioxide 26 29 26 Anion Gap 7.0 3.0 6.0 BUN 4 L 5 L 7 Creatinine 0.86 0.90 0.64 Est Cr Clr Drug Dosing 109.1 104.3 155.6 Est GFR ( Amer) 128.4 126.0 145.0 Est GFR (Non-Af Amer) 110.8 108.7 125.1 BUN/Creatinine Ratio 4.2 L 5.9 L 10.8 Glucose 134 H 103 H 112 H Calcium 8.8 8.4 L 8.7 Phosphorus 2.7 Albumin 3.5 Urine Osmolality PG Care Time/CCT Total # of Minutes Spent Total Time Spent with Patient: Total time spent is greater than 50% in coordination of care (as documented) at patient's floor/unit and/or counseling patient: Coding Level of Care Code 27332 Subseq Hosp Care Lvl 3 Diagnoses Acute hyponatremia E87.1 HTN (hypertension) I10 Hypophosphatasia E83.39 Altered mental status R41.82 Altered mental status type: unspecified (1) Altered mental status Altered mental status type: unspecified Qualified Code(s): R41.82 - Altered mental status, unspecified
[2020-01-21] MEDS ORDERED: SIMETHICONE 80 MG CHEW PO PRN (11:04)
--- NOTE | 2020-01-21 15:19 | Hospitalist Progress Note ---
Date of Service January 21, 2020 Assessment & Plan (1) Acute hyponatremia: Corrected, sodium 136 today Admitted with hyponatremia, possible acute on chronic? 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 (2) Altered mental status: -Patient presented from [facility] after he was found to have altered mental status and combative behavior In the ED, patient received Versed and 2 doses of ketamine and continued to be combative Was intubated for airway protection/extubated on 01/20/2020 -UDS negative; concern for synthetic marijuana -not detectable in tox screening CT head noncontrast: No acute change noted Awake and alert, no confusion or delirium He denies of any headache, no blurred vision Does not have any recollection of the events that led to him to hospital admission (3) Combative behavior: Possible secondary to drug abuse? Was intubated in the ER-required brief ICU stay, extubated Patient is alert awake oriented, calm cooperative and appropriate (4) HTN (hypertension): BP stable Was on HCTZ Diuretics discontinued Given patient's presentation, -high risk for recurrent hyponatremia HCTZ will not be resumed when patient is discharged (5) Dyslipidemia: -Statin (6) DVT prophylaxis: -SQ Lovenox CODE STATUS: Full code Disposition: Patient will be discharged back to [facility] in next 1 to 2 days if remains medically stable Admission and Anticipated Discharge Date Admission Date: January 18, 2020 Subjective Awake and alert, no confusion, conversing appropriately No complaint of headache, no nausea vomiting, no confusion Tolerating solid diet, Davis discontinued Denies of any headache, no fever or chill Review of Systems Review of Systems: All systems reviewed & are unremarkable except as noted in HPI & below Constitutional: no fever, no chills and no anorexia Cardiovascular: no chest pain, no dyspnea and no orthopnea Gastrointestinal: no abdominal pain, no nausea and no vomiting Physical Exam Constitutional: WD/WN, vitals as above no acute distress Eyes: PERRL, conjunctivae normal, anicteric sclerae ENMT: external ear and nose normal, oropharynx normal Neck: trachea midline, no thyromegaly Respiratory: Auscultation: lungs clear to auscultation bilaterally Cardiovascular: Rate/Rhythm: regular rate and regular rhythm Extremities: no edema Gastrointestinal (Abdomen): Inspection/Auscultation: normal bowel sounds Percussion/Palpation: abdomen soft Musculoskeletal: no cyanosis or clubbing, extremities motor strength 5/5 Neurologic: PERRL, EOMI, accommodation nl, no face palsy, no dysarthria Psychiatric: A+Ox3, euthymic affect Results & Data ([facility]) Vital Signs (Past 12 Hours) Vital Signs Temp Pulse Pulse Resp BP Pulse Ox 01/21/20 11:32 37.2 C 99 H 18 129/82 99 01/21/20 07:51 85 01/21/20 07:28 36.9 C 80 18 108/73 98 (1) Altered mental status Altered mental status type: unspecified Qualified Code(s): R41.82 - Altered mental status, unspecified
[2020-01-21 16:59] LABS: Calcium 9.1 mg/dl (8.5-10.1); Creatinine Clr Calc Pharmacy 124.5 ml/min; Est GFR (African American) 132.3; Est GFR (Non-African American) 114.1; Potassium 3.5 mmol/L (3.5-5.1)
[2020-01-21] MEDS: TAMSULOSIN HCL 0.4 MG CAP PO SCH (18:01)
[2020-01-22] MEDS ORDERED: ACETAMINOPHEN 325 MG TAB PO PRN (06:15)
[2020-01-22 06:28] LABS: Albumin Level 3.6 gm/dl (3.4-5.0); BUN Creatinine Ratio 13.4 (10-20); Calcium 8.9 mg/dl (8.5-10.1); Est GFR (African American) 145.9; Est GFR (Non-African American) 125.9; Potassium 3.8 mmol/L (3.5-5.1)
[2020-01-22 06:34] LABS: Phosphorus 3.9 mg/dl (2.5-4.9)
[2020-01-22] MEDS: CETIRIZINE HCL 10 MG TABLET PO SCH (08:19)
[2020-01-22] MEDS: ATORVASTATIN 10 MG TAB PO SCH (08:19)
[2020-01-22] MEDS: FAMOTIDINE 20 MG TAB PO SCH (08:19)
--- NOTE | 2020-01-22 09:55 | Nephrology Progress Note ---
Date of Service January 22, 2020 Assessment & Plan (1) Acute hyponatremia: -- Sodium acceptable today. -- Volume status euvolemic. -- IVF discontinued yesterday. -- Appropriate electrolyte replacement has been provided for hypokalemia and hypophosphatemia. -- HCTZ discontinued. -- Risks of polydipsia reviewed with patient. -- Please repeat a metabolic profile within 3-4 days, results can be faxed to [phone]. -- Nic should be stable for discharge with close outpatient follow up from a nephrology standpoint. -- I will sign-off, please call with questions or concerns. (2) HTN (hypertension): -- BP and volume status are acceptable. -- HCTZ discontinued. (3) BPH (benign prostatic hyperplasia): -- Tamsulosin restarted yesterday. -- Davis removed yesterday. -- No urinary complaints at this time. Subjective No acute events overnight. Nic feels well this morning. Mild sinus congestion and a sore throat reported this AM. Nic states that his throat feels scratchy. Appetite is good. Fluid intake appropriate. No fevers or chills. BP acceptable. No urinary complaints. Voiding without difficulty s/p removal of Davis. Review of Systems Review of Systems: All systems reviewed & are unremarkable except as noted in HPI & below Physical Exam Constitutional: well developed; no acute distress Eyes: + anicteric sclerae; no conjunctival abnormality Neck: normal visual inspection and trachea midline Respiratory: normal respiratory effort Auscultation: lungs clear to auscultation bilaterally Cardiovascular: Rate/Rhythm: regular rate Heart Sounds: normal S1 and normal S2 Extremities: no edema Musculoskeletal: Extremities: no cyanosis and no clubbing Skin: normal turgor; no rashes Neurologic: Motor/Sensory: no tremor and no asterixis Results & Data Vital Signs (Past 12 Hours) Vital Signs Temp Pulse Resp BP Pulse Ox 01/22/20 06:38 37.2 C 96 H 20 127/79 99 01/21/20 23:39 37.5 C 113 H 18 107/71 99 Laboratory Results Laboratory Results - last 24 hr 01/21/20 01/22/20 16:16 05:20 Sodium 135 L 136 Potassium 3.5 3.8 Chloride 100 101 Carbon Dioxide 30 28 Anion Gap 5.0 7.0 BUN 7 8 Creatinine 0.80 0.63 Est Cr Clr Drug Dosing 124.5 158.0 Est GFR ( Amer) 132.3 145.9 Est GFR (Non-Af Amer) 114.1 125.9 BUN/Creatinine Ratio 9.0 L 13.4 Glucose 117 H 100 H Calcium 9.1 8.9 Phosphorus 3.9 D Albumin 3.6 PG Care Time/CCT Total # of Minutes Spent Total Time Spent with Patient: Total time spent is greater than 50% in coordination of care (as documented) at patient's floor/unit and/or counseling patient: Coding Level of Care Code 96273 Subseq Hosp Care Lvl 3 Diagnoses Acute hyponatremia E87.1 HTN (hypertension) I10 BPH (benign prostatic hyperplasia) N40.0
--- NOTE | 2020-01-22 18:06 | Hospitalist Progress Note ---
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 -patient stated that he was drinking a lot of fluids to keep his kidneys healthy patient was on HCTZ, unknown drug overdose/abuse Hyponatremia corrected gradually/electrolytes level has been stable for last 48 hours Urinary retention: History of BPH?, On Flomax: Which is continued post void urine: 150-300 mL noted after Davis catheter removed Patient refused straight cath/ Order for UA Urology consult requested (2) Altered mental status: Resolved Awake and alert oriented x3 now , no confusion or delirium He denies of any headache, no blurred vision Does not have any recollection of the events that led to him to hospital admission -Patient presented from [facility] after he was found to have altered mental status and combative behavior In the ED, patient received Versed and 2 doses of ketamine and continued to be combative Was intubated for airway protection/extubated on 01/20/2020 -UDS negative; concern for synthetic marijuana -not detectable in tox screening CT head noncontrast: No acute change noted (3) Combative behavior: Possible secondary to drug abuse? Was intubated in the ER-required brief ICU stay, extubated Patient is alert awake oriented, calm cooperative and appropriate (4) HTN (hypertension): BP stable Was on HCTZ Diuretics discontinued Given patient's presentation, -high risk for recurrent hyponatremia HCTZ will not be resumed when patient is discharged (5) Dyslipidemia: -Statin (6) DVT prophylaxis: -SQ Lovenox CODE STATUS: Full code Disposition: Patient will be discharged back to [facility]/intermediate in next 1 to 2 days if remains medically stable Admission and Anticipated Discharge Date Admission Date: January 18, 2020 Subjective Patient continued to have difficulty in voiding, Large amount of post void residual noted on bladder scan No fever or chills Complains of sore throat, headache, generalized weakness," not feeling well" No complaint of abdominal pain, no nausea vomiting Review of Systems Review of Systems: All systems reviewed & are unremarkable except as noted in HPI & below Constitutional: + fatigue and + weakness; no fever, no chills, no body aches and no malaise Respiratory: no cough, no dyspnea, no dyspnea on exertion and no wheezing Genitourinary: + difficulty urinating (Urinary retention ) Physical Exam Constitutional: WD/WN, vitals as above + ill appearing; no acute distress Eyes: PERRL, conjunctivae normal, anicteric sclerae ENMT: external ear and nose normal, oropharynx normal Neck: trachea midline, no thyromegaly Respiratory: Auscultation: lungs clear to auscultation bilaterally Cardiovascular: Rate/Rhythm: regular rate and regular rhythm Extremities: no edema Gastrointestinal (Abdomen): Inspection/Auscultation: normal bowel sounds Percussion/Palpation: abdomen soft Musculoskeletal: no cyanosis or clubbing, extremities motor strength 5/5 Neurologic: PERRL, EOMI, accommodation nl, no face palsy, no dysarthria Psychiatric: A+Ox3, euthymic affect Results & Data ([facility]) Vital Signs (Past 12 Hours) Vital Signs Temp Pulse Pulse Resp BP Pulse Ox 01/22/20 15:40 37.0 C 89 16 120/74 97 01/22/20 06:38 37.2 C 96 H 20 127/79 99 (1) Altered mental status Altered mental status type: unspecified Qualified Code(s): R41.82 - Altered mental status, unspecified
--- NOTE | 2020-01-22 18:21 | Urology Consultation ---
Date of Consultation January 22, 2020 Assessment & Plan (1) BPH (benign prostatic hyperplasia): Patient's acute urinary retention issues have resolved and the catheter was removed yesterday without major issues or concerns. Patient has been increasing activity. Has been on medications to try to prevent development of major bowel or bladder issues. Discussed different options and concerns. Patient has been restarted on his Flomax. Will likely need outpatient follow-up likely in the next 2 to 3 months to reassess and determine if this is a transient event or if it is an exacerbation of more severe underlying issues. No bleeding or problems. We will plan to continue monitoring and continue with supportive care. Call urology if any major issues or concerns. Patient's complicated medical and surgical history was reviewed and summarized as above. Family history was also reviewed and summarized as in the history section. All imaging was reviewed. Patient may need a renal ultrasound at some point either prior to discharge or prior to follow-up. History of Present Illness Attending Physician: Estella Walsh MD History of Present Illness Consult for urinary issues with incomplete emptying and possible retention. Patient has mild to moderate discomfort in pelvis and groin going to back and side in waves. Is dealing with acute illness. Has been deconditioned from this. Has decreased mobility significantly with acute issues. Patient has not had complete return to normal bowel function. Has had some minor urinary issues in the past. Denies bleeding. No severe nausea or vomiting. Currently no fevers. Discussed with patient multifactorial nature of urinary issues, retention, and incomplete bladder emptying. Discussed concerns and issues. Discussed decreased mobility and trouble voiding. Discussed issues related to deconditioning and weakened state. Discussed possibility that patient had more moderate to severe issues and with the acute illness and deconditioning these issues became more prevalent and obvious. Discussed bowel function and possible issues related to decrease in function and its relation to other pelvic organs and systems. Discussed different medications, will use during hospitalization and their effect on ability to empty. Allergies Allergy/AdvReac Type Severity Reaction Status Date / Time No Known Allergies Allergy Unverified 01/18/20 15:01 Home Medications Home Medications Medication Instructions Recorded Confirmed Type atorvastatin 10 mg PO DAILY 01/18/20 01/18/20 History cetirizine 10 mg PO DAILY 01/18/20 01/18/20 History dicyclomine 20 mg PO QID PRN 01/18/20 01/18/20 History hydrochlorothiazide 12.5 mg PO DAILY 01/18/20 01/18/20 History simethicone 125 mg PO QID PRN 01/18/20 01/18/20 History tamsulosin 0.8 mg PO DAILY 01/18/20 01/18/20 History Patient History Medical History BPH (benign prostatic hyperplasia) Dyslipidemia HTN (hypertension) Family History Other Family history unobtainable Social History Communication Ability: Unable Current Living Situation: Other Current Living Situation Comment: [facility] Smoking Status: Unknown if ever smoked Hx Alcohol Use: No Review of Systems Review of Systems: All systems reviewed & are unremarkable except as noted in HPI & below Physical Exam Physical Exam: General: Alert and oriented x 3 in no acute distress. Patient is well nourished and well kept. HEENT: Normocephalic Atraumatic. Inspection normal. Cranial Nerves 2-12 Grossly intact. Nares are clear. Neck is supple. Normal inspection of face. Normal inspection of neck. Neurologic: No deficits on inspection. Baseline for motor function and sensory. Psychologic: Normal affect. Respiratory: Nonlabored. No use of accessory muscles. No tachypnea or dyspnea. Cardiovascular: No tachycardia Skin: [place] and Dry. No rashes or visible lesions. Extremities: Moving without issues. No motor deficits on inspection Lymphatics: No edema Abdomen: Soft Non-distended. No acites. No rebound or guarding. Results & Data Vital Signs (Past 12 Hours) Vital Signs Temp Pulse Pulse Resp BP Pulse Ox 01/22/20 15:40 37.0 C 89 16 120/74 97 01/22/20 06:38 37.2 C 96 H 20 127/79 99 PG Care Time/CCT Total # of Minutes Spent Total Time Spent with Patient: Total time spent is greater than 50% in coordination of care (as documented) at patient's floor/unit and/or counseling patient: Coding Level of Care Code 26535 Inpt Consult Level 5 Diagnoses BPH (benign prostatic hyperplasia) N40.0
[2020-01-22] MEDS: TAMSULOSIN HCL 0.4 MG CAP PO SCH (20:07)
[2020-01-22] MEDS ORDERED: bisacodyL 5 MG TABEC PO PRN (23:39)
[2020-01-23 04:38] LABS: Appearance Urine Clear (Clear); Bacteria Urine Automated 2+ (Negative); Bilirubin Urine Negative (Negative); Blood Urine 1+ (Negative); Cast Urine Automated 0 /lpf (0-5); Color Urine Yellow; Epithelial Cell Urine Auto 0-5 /lpf (0-5); Glucose Urine UA Negative (Negative); Ketones Urine Negative (Negative); Leukocyte Esterase Urine Trace (Negative); Nitrite Urine Negative (Negative); Protein Urine 1+ (Negative); Specific Gravity Urine 1.019 (1.000-1.030); Urobilinogen Urine Negative (Negative)
[2020-01-23 06:10] LABS: BUN Creatinine Ratio 16.8 (10-20); Calcium 9.3 mg/dl (8.5-10.1); Creatinine Clr Calc Pharmacy 124.5 ml/min; Est GFR (African American) 132.3; Est GFR (Non-African American) 114.1; Potassium 4.1 mmol/L (3.5-5.1)
--- NOTE | 2020-01-23 07:05 | Ultrasound Report ---
US renal/blad retro comp CLINICAL HISTORY: 39 years-old Male presenting with urinary retention. TECHNIQUE: Real-time grayscale and limited color Doppler ultrasound imaging of the kidneys and bladde r was performed. COMPARISON: Plain radiograph from 01/20/2020. FINDINGS: Right kidney: Normal echogenicity with preserved corticomedullary differentiation. Normal cortical th ickness. Right kidney measures 10.4 cm. No hydronephrosis. No convincing evidence of calculus or mass . Left kidney: Normal echogenicity with preserved corticomedullary differentiation. Normal cortical thi ckness. Left kidney measures 10.3 cm. No hydronephrosis. No convincing evidence of calculus or mass. Bladder: Focal nondependent mildly hyperechoic irregular bladder wall thickening along the right late ral aspect measuring 4 x 8 x 12 mm. Bilateral ureteral jets present. Other: Increased echogenicity of hepatic parenchyma. IMPRESSION: 1. Irregular bladder wall thickening along the right lateral aspect of the bladder wall. Underlying neoplasm not excluded. Nonurgent urologic consultation recommended. 2. No hydronephrosis. The report will be called/faxed according to standard departmental protocol. ACT 112: Negative or not required by law. Electronically signed by: Uli Otto M.D. 01/23/2020 7:04 AM
[2020-01-23] MEDS: CETIRIZINE HCL 10 MG TABLET PO SCH (07:58)
[2020-01-23] MEDS: FAMOTIDINE 20 MG TAB PO SCH (07:58)
[2020-01-23] MEDS: ATORVASTATIN 10 MG TAB PO SCH (07:59)
[2020-01-23] MEDS ORDERED: POLYETHYLENE (MIRALAX) 17 GM PACK PO SCH (09:00)
[2020-01-23] MEDS ORDERED: DOCUSATE SODIUM 100 MG CAP PO SCH (09:00)
--- NOTE | 2020-01-23 09:31 | Hospitalist Progress Note ---
Date of Service January 23, 2020 Assessment & Plan Admission and Anticipated Discharge Date Admission Date: January 18, 2020 Subjective Attending note: Renal ultrasound today: 01/23/2020 IMPRESSION: 1. Irregular bladder wall thickening along the right lateral aspect of the bladder wall. Focal nondependent mildly hyperechoic irregular bladder wall thickening along the right lateral aspect measuring 4 x 8 x 12 mm. Bilateral ureteral jets present. Underlying neoplasm not excluded. Nonurgent urologic consultation recommended. 2. No hydronephrosis. Ordered for urine cytology PSA level within normal limit [facility] urology already consulted for this patient for urinary retention Ultrasound finding discussed with on-call urology Ultrasound reviewed by urology, recommends office follow-up and outpatient cystoscopy Estella Walsh MD Results & Data ([facility]) Vital Signs (Past 12 Hours) Vital Signs Temp Pulse Resp BP Pulse Ox 01/23/20 07:53 37.8 C H 99 H 18 107/75 95 01/22/20 23:03 37.3 C 94 H 18 103/68 96
--- NOTE | 2020-01-23 10:19 | Progress Note ---
Date of Service January 23, 2020 Assessment & Plan Admission and Anticipated Discharge Date Admission Date: January 18, 2020 Subjective Patient known to our service, notified by hospitalists regarding questionable b ladder mass on bladder US. No hydro, past events noted. Needs cysto to evaluate area. Will arrange in short order regarding timing - due to COVID precautions, limited schedule but availability present. Stable for DC from [facility] from perspective. Will need to coordinate timing with facility. Results & Data ([facility]) Vital Signs (Past 12 Hours) Vital Signs Temp Pulse Resp BP Pulse Ox 01/23/20 07:53 37.8 C H 99 H 18 107/75 95 01/22/20 23:03 37.3 C 94 H 18 103/68 96 PG Care Time/CCT Total # of Minutes Spent Total Time Spent with Patient: Total time spent is greater than 50% in coordinat ion of care (as documented) at patient's floor/unit and/or counseling patient: Coding Level of Care Code None
[2020-01-23 15:22] VITALS: TEMP 97.7; O2SAT 98
--- NOTE | 2020-01-23 16:01 | Hospitalist Progress Note ---
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 Underlying neoplasm not excluded. Nonurgent urologic consultation recommended. PSA level within normal limit 2.14 Patient will need urology follow-up in clinic and scheduled for cystoscopy in 2- 3 weeks [facility] urology office will coordinate with [facility] (2) Altered mental status: Resolved-tocolytic encephalopathy possible combination of electrolyte derangement hyponatremia, possible drug abuse? Awake and alert oriented x3 now , no confusion or delirium He denies of any headache, no blurred vision Does not have any recollection of the events that led to him to hospital admission -Patient presented from [facility] after he was found to have altered mental status and combative behavior In the ED, patient received Versed and 2 doses of ketamine and continued to be combative Was intubated for airway protection/extubated on 01/20/2020 -UDS negative; concern for synthetic marijuana -not detectable in tox screening CT head noncontrast: No acute change noted (3) Combative behavior: Possible secondary to drug abuse? Was intubated in the ER-required brief ICU stay, extubated Patient is alert awake oriented, calm cooperative and appropriate (4) HTN (hypertension): BP stable Was on HCTZ Diuretics discontinued Given patient's presentation, -high risk for recurrent hyponatremia HCTZ will not be resumed when patient is discharged (5) Dyslipidemia: -Statin (6) DVT prophylaxis: -SQ Lovenox CODE STATUS: Full code Disposition: Stable to be discharged back to [facility]/snf today Admission and Anticipated Discharge Date Admission Date: January 18, 2020 Subjective Patient is awake and alert, denies of any discomfort, No headache, no fever or chills, no confusion Treated regarding renal ultrasound finding, and need for outpatient cystoscopy and neurology follow-up Patient is counseled regarding avoiding excessive drinking of water/fluid which can cause iatrogenically hyponatremia Patient will be discharged to [facility] today, fluid restriction 2 L a day instructed Review of Systems Review of Systems: All systems reviewed & are unremarkable except as noted in HPI & below Constitutional: + fever and + chills; no fatigue and no malaise Eyes: no diplopia Respiratory: no cough, no dyspnea and no dyspnea on exertion Cardiovascular: no chest pain, no dyspnea, no palpitations, no lightheadedness, no syncope and no edema Genitourinary: + difficulty urinating; no hematuria Psychiatric: no confusion Physical Exam Constitutional: WD/WN, vitals as above + ill appearing; no acute distress Eyes: PERRL, conjunctivae normal, anicteric sclerae ENMT: external ear and nose normal, oropharynx normal Neck: trachea midline, no thyromegaly Respiratory: Auscultation: lungs clear to auscultation bilaterally Cardiovascular: Rate/Rhythm: regular rate and regular rhythm Extremities: no edema Gastrointestinal (Abdomen): Inspection/Auscultation: normal bowel sounds Percussion/Palpation: abdomen soft Musculoskeletal: no cyanosis or clubbing, extremities motor strength 5/5 Neurologic: PERRL, EOMI, accommodation nl, no face palsy, no dysarthria Psychiatric: A+Ox3, euthymic affect Results & Data ([facility]) Vital Signs (Past 12 Hours) Vital Signs Temp Pulse Resp BP Pulse Ox 01/23/20 15:22 36.5 C 85 18 117/82 98 01/23/20 07:53 37.8 C H 99 H 18 107/75 95 Diagnostic Findings Renal ultrasound: 01/23/2020 FINDINGS: Right kidney: Normal echogenicity with preserved corticomedullary differentiation. Normal cortical thickness. Right kidney measures 10.4 cm. No hydronephrosis. No convincing evidence of calculus or mass. Left kidney: Normal echogenicity with preserved corticomedullary differentiation. Normal cortical thickness. Left kidney measures 10.3 cm. No hydronephrosis. No convincing evidence of calculus or mass. Bladder: Focal nondependent mildly hyperechoic irregular bladder wall thickening along the right lateral aspect measuring 4 x 8 x 12 mm. Bilateral ureteral jets present. Other: Increased echogenicity of hepatic parenchyma. IMPRESSION: 1. Irregular bladder wall thickening along the right lateral aspect of the bladder wall. Underlying neoplasm not excluded. Nonurgent urologic consultation recommended. (1) Altered mental status Altered mental status type: unspecified Qualified Code(s): R41.82 - Altered mental status, unspecified
[2020-01-23 17:24] VITALS: BP 120/74; PULSE 96
--- NOTE | 2020-01-23 17:30 | Discharge Summary ---
Date of Service January 23, 2020 Admission HPI Per Admitting Provider 39 year old male who presents to the ED from [facility] for evaluation of altered mental status. Patient was found by his cellmate this afternoon confused and combative. Patient was brought to the ED for further evaluation. History is currently unobtainable from the patient. Per guard who is at the bedside, patient is in his cell 23 hours/day due to history of drug use while in intermediate. Patient is on HCTZ and Flomax and does have these medications available to take in his cell. No reported seizure like activity. In the ED, patient continued to be combative and received Versed and 2 doses of Ketamine. He then developed vomiting and once again became combative. He was then intubated for airway protection. Labs show critical hyponatremia, Na+ 117. Patient received 1L NSS and also a dose of DDAVP after discussion with tie tamper. Principal Diagnosis HYPONATREMIA/URINARY RETENTION/POSSIBLE BLADDER MASS Discharge Exam Constitutional WD/WN, vitals as above + ill appearing; no acute distress Eyes PERRL, conjunctivae normal, anicteric sclerae ENMT external ear and nose normal, oropharynx normal Neck trachea midline, no thyromegaly Respiratory Auscultation: lungs clear to auscultation bilaterally Cardiovascular Rate/Rhythm: regular rate and regular rhythm Extremities: no edema Gastrointestinal (Abdomen) Inspection/Auscultation: normal bowel sounds Percussion/Palpation: abdomen soft Musculoskeletal no cyanosis or clubbing, extremities motor strength 5/5 Neurologic PERRL, EOMI, accommodation nl, no face palsy, no dysarthria Psychiatric A+Ox3, euthymic affect Discharge Data Allergies Allergy/AdvReac Type Severity Reaction Status Date / Time No Known Allergies Allergy Unverified 01/18/20 15:01 Consultations 01/18/20 15:32 ED Decision to Admit Stat 01/18/20 17:35 Consult Case Management - Discharge Planning Routine Consult Clinical Informatics Manager Routine 01/19/20 04:53 Consult Nephrology Routine 01/22/20 14:02 Consult Urology Routine Ordered Studies 01/18/20 14:21 CT head/brain wo con Stat 01/18/20 14:42 CT facial bones wo con Stat 01/23/20 08:00 US renal/blad retro comp Routine Hospital Course (1) Acute hyponatremia: Corrected, normal sodium level 136, with stable volume status/euvolemic HCTZ discontinued Appreciate input from nephrology, Patient is counseled to limit excessive water intake Will need outpatient basic metabolic profile checked in 3-4 days, result can be faxed to [facility] number #[phone] Admitted with hyponatremia, acute on chronic 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 Underlying neoplasm not excluded. Nonurgent urologic consultation recommended. PSA level within normal limit 2.14 Patient will need urology follow-up in clinic and scheduled for cystoscopy in 2- 3 weeks [facility] office will coordinate with [facility] (2) Altered mental status: Resolved-tocolytic encephalopathy possible combination of electrolyte derangement hyponatremia, possible drug abuse? Awake and alert oriented x3 now , no confusion or delirium He denies of any headache, no blurred vision Does not have any recollection of the events that led to him to hospital admission -Patient presented from [facility] after he was found to have altered mental status and combative behavior In the ED, patient received Versed and 2 doses of ketamine and continued to be combative Was intubated for airway protection/extubated on 01/20/2020 -UDS negative; concern for synthetic marijuana -not detectable in tox screening CT head noncontrast: No acute change noted (3) Combative behavior: Possible secondary to drug abuse? Was intubated in the ER-required brief ICU stay, extubated Patient is alert awake oriented, calm cooperative and appropriate (4) HTN (hypertension): BP stable Was on HCTZ Diuretics discontinued Given patient's presentation, -high risk for recurrent hyponatremia HCTZ will not be resumed when patient is discharged (5) Dyslipidemia: -Statin (6) DVT prophylaxis: -SQ Lovenox CODE STATUS: Full code Disposition: Stable to be discharged back to [facility]/intermediate today Total Time Total Time Spent Total Time Spent (In Minutes): approx 40 mins Total Time Includes: Examination of the Patient, Discharge Planning, Medication Reconciliation and Communication With Other Providers Discharge Plan Discharge Items [facility]position[facility] Reason For Visit: SUSPECTED OVERDOSE Discharge Diagnosis: HYPONATREMIA/URINARY RETENTION/POSSIBLE BLADDER MASS Condition on Discharge: Fair Activity: Resume your previous activity Non-emergency contact: Primary Care Provider Call non-emergency contact if: you have any medication questions Follow-up/Referrals: Matt Houston MD [Physician] - (Concern for possible bladder mass/tumor noted on ultrasound Please call to schedule office visit and cystoscopy in 2-3 weeks) Carlos Ferreira DO [Physician] - (Please fax the report of basic metabolic panel to Dr. Carlos Ferreira) Melanie BOWEN [Primary Care Provider] - Diet: Regular Fluids: 2000ml (8 cups) Addtl Attending Provider Instructions: DO NOT TAKE HYDROCHLOROTHIAZIDE /HCTZ Do not take aspirin or any blood thinners-can cause significant hematuria secondary to bladder mass REPEAT LAB WORK: BASIC METABOLIC PANE IN 1 WEEK Please fax the results to fax number #[phone] Attention: Dr. Carlos Ferreira nephrology with [facility] Irregular bladder wall thickening along the right lateral aspect of the bladder wall. Underlying neoplasm not excluded. Urology follow-up in clinic to schedule a cystoscopy and possible biopsy to assess bladder mass Pending Studies at Discharge: Yes Studies:: LAB: BASIC METABOLIC PANEL IN 1 WEEK Result of the lab should be faxed to Dr. Carlos Ferreira [facility] Neph[facility] office fax number #[phone] Stand-Alone Forms: My [facility], Suicide Prevention Resources Skilled Items Patient informed of condition?: Yes Discharge Level of Care: Other Communicable Disease: No Discharge Prognosis: Stable Lines: None Urinary Catheter: No Medications and DC Order Prescriptions: Continued cetirizine 10 mg Tablet 10 mg PO DAILY RF: 0 atorvastatin 10 mg Tablet 10 mg PO DAILY RF: 0 tamsulosin 0.4 mg Capsule 0.8 mg PO DAILY RF: 0 dicyclomine 20 mg Tablet 20 mg PO QID PRN (Reason: Abdominal Discomfort) RF: 0 simethicone 125 mg Tablet,Chewable 125 mg PO QID PRN (Reason: Indigestion) RF: 0 Discontinued hydrochlorothiazide 12.5 mg Capsule 12.5 mg PO DAILY RF: 0 Discharge Orders: Discharge Order (Routine); Ordered 01/23/20 Ordered By: Estella Walsh Admission Data Admit Date/Time: 01/18/20 15:46 Attending Provider: Estella Walsh Admit Provider: Miguelina Maldonado Primary Care Provider: Melanie BOWEN Other Providers: Miguelina Maldonado ; Irvin Veloz ; Moriah Meraz ; Ramon Carrillo ; Matt Mayes ; Matt Houston I. ; Henok Putnam ; Charu Maharaj ; Victoria Joe ; Butch Handley ; Carolyn Sargent ; Loni Cornell ; Kwan Sheth ; Greer Sol
[2020-01-23] MEDS ORDERED: CIPROFLOXACIN 500 MG TAB PO ONE (18:45)
--- NOTE | 2020-01-27 10:00 | Hospitalist Progress Note ---
Date of Service January 27, 2020 Assessment & Plan Admission and Anticipated Discharge Date Admission Date: January 18, 2020 Subjective ATTENDING NOTE : urine culture result reviewed : 01/23/20 ; Coag negative staph -MRSA pt was discharged on pO Cipro 500 mg BID for 10 days result of the urine culture discussed with Phabarbiey and dain lab pt's urine culture -coag negative staph is sensitive to Cipro no change in Abx needed Estella Walsh MD
== END 2020-01-23 19:20 | DRG 641 ==
LOC: ED 14:16 → 1E 15:46 → SUATTDRO 15:46 → 1E 16:35 → 2N 01-20 11:50